=== PATIENT | male | born 1990 | race Caucasian/White ===

== ENCOUNTER 2016-08-26 18:00 | Emergency (ER) | payer OTHER ==
[2016-08-26 18:41] VITALS: BP 175/118
--- NOTE | 2016-08-26 21:14 | RAD ---
INDICATION: Right testicular cancer with orchiectomy. Scrotal pain COMPARISON: April 22, 2015 TECHNIQUE: Duplex interrogation of the scrotum was performed. FINDINGS: Testicles: There is a right testicular prosthesis. The left testicle is normal in size and echogenicity measuring 4.9 x 3.1 x 3.5 cm. There is flow on Doppler interrogation. Left epididymis: The right epididymis appears normal. The epididymal head measures 1.6 x 1.1 cm. Hydroceles: None. Varicoceles: None. Other: None. IMPRESSION: RIGHT ORCHIECTOMY WITH PROSTHESIS. NORMAL LEFT TESTIS
--- NOTE | 2016-08-26 23:25 | ED ---
Jaya Abbott Alfonso, scribed for Candido Cobb MD on 08/26/16 at 2026 . GI/ HPI - HPI Summary HPI Summary: This is a 26 year old male presenting to [facility] c/o left sided testicular pain since two days ago. He also reports tingling at the tip of his penis. The pain is rated 4/10 in severity. Symptoms aggravated by movement and alleviated by nothing. Denies penile discharge. Patient reports he is not sexually active. PMHx of testicular cancer. PSHx of testicle removal in 2010. - History of Current Complaint Chief Complaint: EDUrogenitalProblems Time Seen by Provider: 08/26/16 19:35 Stated Complaint: GROIN PAIN Hx Obtained From: Patient Onset/Duration: Started Days Ago - 2 days, Still Present Timing: Constant Severity: Moderate Current Severity: Moderate Pain Intensity: 4 Location of Pain: Groin - left sided testicular pain and tingling at the tip of his penis Associated Signs and Symptoms: Positive: Other: - Negaitve sexually active; positive left sided testicular pain and tingling at the tip of his penis. Negative: Discharge, New Sexual Partner Aggravating Factor(s): Movement Alleviating Factor(s): Nothing - Allergy/Home Medications Allergies/Adverse Reactions: Allergies Allergy/AdvReac Type Severity Reaction Status Date / Time No Known Allergies Allergy Verified 08/01/15 10:15 PMH/Surg Hx/FS Hx/Imm Hx Sensory History: Denies: Hx Deafness Opthamlomology History: Denies: Hx Legally Blind - Cancer History Cancer Type, Location and Year: Testicular CA stage 1--had surgery and chemo - Surgical History Surgery Procedure, Year, and Place: testicle removal 2010, 2014 R testicle prosthetis implanted, mediport placed & removed. tonsillectomy Infectious Disease History: No Infectious Disease History: Denies: Traveled Outside the [place] in Last 30 Days - Family History Known Family History: Positive: Other - Cancer - Social History Alcohol Use: None Substance Use Type: Reports: None Smoking Status (MU): Former Smoker Type: Cigarettes Amount Used/How Often: 1-2 cigarettes daily Length of Time of Smoking/Using Tobacco: on & off for a few years Review of Systems Negative: Fever Positive: pain, other - Tingling at the tip of his penis. Negative: discharge All Other Systems Reviewed And Are Negative: Yes Physical Exam Triage Information Reviewed: Yes Vital Signs On Initial Exam: Initial Vitals Temp Pulse Resp BP Pulse Ox 98.8 F 89 16 175/118 99 08/26/16 18:37 08/26/16 18:37 08/26/16 18:37 08/26/16 18:37 08/26/16 18:37 Vital Signs Reviewed: Yes Appearance: Positive: Well-Appearing, No Pain Distress, Obese Skin: Positive: Warm, Skin Color Reflects Adequate Perfusion, Dry Head/Face: Positive: Normal Head/Face Inspection Eyes: Positive: Normal ENT: Positive: Normal ENT inspection Neck: Positive: Supple, Nontender Respiratory/Lung Sounds: Positive: Clear to Auscultation, Breath Sounds Present Cardiovascular: Positive: RRR Abdomen Description: Positive: Nontender, Soft Bowel Sounds: Positive: Present Male Genital Exam: Positive: other - Normal left testical Musculoskeletal: Positive: Normal Neurological: Positive: Normal, Sensory/Motor Intact, Alert, Oriented to Person Place, Time, CN Intact II-III Psychiatric: Positive: Affect/Mood Appropriate - Dennis Coma Scale Coma Scale Total: 15 Diagnostics - Vital Signs Vital Signs Temp Pulse Resp BP Pulse Ox 08/26/16 19:12 98.8 F 76 16 175/118 98 08/26/16 18:37 98.8 F 89 16 175/118 99 - Laboratory Lab Statement: Any lab studies that have been ordered have been reviewed, and results considered in the medical decision making process. - Additional Comments Diagnostic Additional Comments: US Testicular : RIGHT ORCHIECTOMY WITH PROSTHESIS. NORMAL LEFT TESTIS Re-Evaluation - Re-Evaluation First Eval Re-Evaluation Time: 21:37 Comment: Discussed results and follow up with urologist with patient. GIGU Course/Dx - Course Course Of Treatment: Mr. Aggarwal has pain in his left testicle minorly for a few days and had an unremarkable exam and W/U. I referred him to Dr. Feliz. - Diagnoses Provider Diagnoses: Left testicular pain Discharge - Discharge Plan Condition: Stable Disposition: HOME Patient Education Materials: Testicle Pain (ED) Referrals: Sonia Mckeon MD [Medical Doctor] - 3 Days Additional Instructions: Follow up with urologist. The documentation as recorded by the Jaya horner Alfonso accurately reflects the service I personally performed and the decisions made by , Candido Cobb MD.
== END 2016-08-26 21:47 | disposition home or self-care (01) ==
LOC: ED 18:24
DX: N50.812 Left testicular pain (principal); N48.89 Other specified disorders of penis; Z87.891 Personal history of nicotine dependence
CPT/HCPCS: 76870; 99282

== ENCOUNTER 2016-12-25 18:51 | Emergency (ER) | payer OTHER ==
[2016-12-25 19:08] VITALS: BP 142/90
--- NOTE | 2016-12-25 19:13 | UC ---
Complaint Male HPI - HPI Summary HPI Summary: 26 year old male with a history of testicular cancer presents with right testicular mass. - History of Current Complaint Chief Complaint: UCGU Stated Complaint: PERSONAL Time Seen by Provider: 12/25/16 19:12 Hx Obtained From: Patient Onset/Duration: Lasting Days Timing: Constant Severity Initially: Moderate Severity Currently: Moderate Pain Scale Used: 0-10 Numeric - 7 - Allergies/Home Medications Allergies/Adverse Reactions: Allergies Allergy/AdvReac Type Severity Reaction Status Date / Time No Known Allergies Allergy Verified 12/25/16 19:08 Home Medications: Home Medications NK [No Home Medications Reported] 12/25/16 [History Confirmed 12/25/16] PMH/Surg Hx/FS Hx/Imm Hx Previously Healthy: Yes - Surgical History Surgical History: Yes Surgery Procedure, Year, and Place: testicle removal 2010, 2014 R testicle prosthetis implanted, mediport placed & removed. tonsillectomy - Family History Known Family History: Positive: None, Unknown, Other - Cancer - Social History Alcohol Use: None Substance Use Type: None Smoking Status (MU): Former Smoker Type: Cigarettes Amount Used/How Often: 1-2 cigarettes daily Length of Time of Smoking/Using Tobacco: on & off for a few years Household Exposure Type: Cigarettes - Immunization History Most Recent Influenza Vaccination: no Review of Systems Constitutional: Negative Skin: Negative Eyes: Negative ENT: Negative Respiratory: Negative Cardiovascular: Negative Gastrointestinal: Negative Genitourinary: Other - right testicular mass Motor: Negative Neurovascular: Negative Musculoskeletal: Negative Neurological: Negative Psychological: Negative All Other Systems Reviewed And Are Negative: Yes Physical Exam Triage Information Reviewed: Yes Vital Signs: Initial Vital Signs Temp 38.1 C 12/25/16 19:03 Pulse 99 12/25/16 19:03 Resp 16 12/25/16 19:03 BP 142/90 12/25/16 19:03 Pulse Ox 100 12/25/16 19:03 Vital Signs Reviewed: Yes Eye Exam: Normal ENT Exam: Normal Dental Exam: Normal Neck exam: Normal Neck: Positive: 1 Respiratory Exam: Normal Cardiovascular Exam: Normal Abdomen Description: Positive: Other: - right testicular mass Musculoskeletal Exam: Normal Neurological Exam: Normal Psychological Exam: Normal Skin Exam: Normal Complaint Male Course/Dx - Differential Dx/Diagnosis Provider Diagnoses: right testicular mass Discharge - Discharge Plan Condition: Stable Disposition: OTHER Discharge Disposition Comment: patient suggested to go to the er. Patient Education Materials: Testicle Pain (ED), Hematoma (ED) Referrals: VARGAS Healy [Primary Care Provider] - Additional Instructions: patient suggested to go to er for testicular mass/hematoma
== END 2016-12-25 19:27 ==
LOC: UCCORT 18:51
DX: R22.9 Localized swelling, mass and lump, unspecified (principal); Z85.47 Personal history of malignant neoplasm of testis; Z87.891 Personal history of nicotine dependence
CPT/HCPCS: 99212; G0463

== ENCOUNTER 2017-10-16 16:32 | Emergency (ER) | payer OTHER ==
[2017-10-16 16:45] VITALS: BP 147/97
--- NOTE | 2017-10-16 17:17 | UC ---
Complaint Male HPI - HPI Summary HPI Summary: pt had R testicle CA about 10-11 years ago. about 3-4 years ago he got a R testicular implant. about [address] Mendoza lowered it. The past 2 weeks he has been having episodic sharp pains with certain movements " like a stitch is poking me". he denies any injury, fever, swelling, rash or urinary complaints. he also denies any abdominal pain. n/v/d. - History of Current Complaint Chief Complaint: UCGU Stated Complaint: PERSONAL Time Seen by Provider: 10/16/17 16:44 Hx Obtained From: Patient Pain Intensity: 4 Alleviating Factor(s): Nothing Associated Signs And Symptoms: Negative: Back Pain, Fever, Hematuria, Dysuria, Penile Swelling, Penile Discharge - Allergies/Home Medications Allergies/Adverse Reactions: Allergies Allergy/AdvReac Type Severity Reaction Status Date / Time No Known Allergies Allergy Verified 01/11/17 11:53 PMH/Surg Hx/FS Hx/Imm Hx - Additional Past Medical History Additional PMH: R testicle CA - Surgical History Surgical History: Yes Surgery Procedure, Year, and Place: testicle removal 2010, 2014 R testicle prosthetis implanted, mediport placed & removed. tonsillectomy - Family History Known Family History: Positive: None, Unknown, Other - Cancer - Social History Occupation: Employed Full-time Alcohol Use: None Substance Use Type: None Smoking Status (MU): Former Smoker Type: Cigarettes Amount Used/How Often: 1-2 cigarettes daily Length of Time of Smoking/Using Tobacco: on & off for a few years Household Exposure Type: Cigarettes - Immunization History Most Recent Influenza Vaccination: no Vaccination Up to Date: Yes Review of Systems Constitutional: Negative Skin: Negative Eyes: Negative ENT: Negative Respiratory: Negative Cardiovascular: Negative Gastrointestinal: Negative Genitourinary: Other - R testicle implant pains Motor: Negative Neurovascular: Negative Musculoskeletal: Negative Neurological: Negative Psychological: Negative Is Patient Immunocompromised?: No All Other Systems Reviewed And Are Negative: Yes Physical Exam Triage Information Reviewed: Yes Appearance: Well-Appearing Vital Signs: Initial Vital Signs Temp 99.0 F 10/16/17 16:39 Pulse 81 10/16/17 16:39 Resp 17 10/16/17 16:39 BP 147/97 10/16/17 16:39 Pulse Ox 100 10/16/17 16:39 Vital Signs Reviewed: Yes Eyes: Positive: Conjunctiva Clear ENT: Positive: Normal ENT inspection Neck: Positive: Supple, Nontender, No Lymphadenopathy Respiratory: Positive: Lungs clear, Normal breath sounds Cardiovascular: Positive: RRR, No Murmur Abdomen Description: Positive: Nontender, No Organomegaly, Soft. Negative: Distended, Guarding Bowel Sounds: Positive: Present Male Genital Exam: Positive: Other - No inguinal adenopathy or hernias. Penis without swelling, lesions or discharge. No scrotal erythema, swelling, warmth or tenderness. L testicle down with no swelling, tendernes or masses. R implant palpable and no fluctuance. Musculoskeletal: Positive: ROM Intact Neurological: Positive: Alert Psychological: Positive: Age Appropriate Behavior Skin Exam: Normal Complaint Male Course/Dx - Course Course Of Treatment: I spoke to Dr Mendoza, pt's urologist and advised of implant pain. He advised if pt has no fever and no concern for infection or abscess that I can tx with an NSAID and pt to f/u in his office. No concern for hernia. No fever, red, swelling, warmth or fluctuance. No concern for infection thus pt to f/u in office. pt advised to go directly to the Er for changes or worsening. - Differential Dx/Diagnosis Provider Diagnoses: R tesicular implant discomfort Discharge - Sign-Out/Discharge Documenting (check all that apply): Patient Departure - Discharge Plan Condition: Stable Disposition: HOME Prescriptions: Naproxen [Naprosyn 500 mg tab] 500 mg PO BID 5 Days #10 tablet Patient Education Materials: Testicle Prosthesis (DC) [facility] - If Needed Additional Instructions: FOLLOW UP DR POMPA WEDNESDAY(2 DAYS). [address], [address] [place] [address] IF YOU DEVELOP WORSENING, A FEVER, RED, WARMTH OR SWELLING GO DIRECTLY TO THE ER - Billing Disposition and Condition Condition: STABLE Disposition: Home
== END 2017-10-16 17:22 | disposition home or self-care (01) ==
LOC: UCCORT 16:32
DX: T83.84XA Pain due to genitourinary prosthetic devices, implants and grafts, initial encounter (principal); Z85.47 Personal history of malignant neoplasm of testis; Z87.891 Personal history of nicotine dependence
CPT/HCPCS: 99212; G0463

== ENCOUNTER 2018-05-16 10:26 | Emergency (ER) | payer OTHER ==
--- OUTSIDE RECORDS SUMMARY | 2018-05-16 11:16 | XMS REPORT | Continuity of Care Document ---
:1990 External Reference #:[id number] Author Name Dona Mendoza M.D. Address [address] [place] [address] Care Team Providers Name Role Phone Lola Anderson PA Care Team Information Insurance Broker Unavailable Lola Anderson PA Primary Care Physician Unavailable Payers Date Identification Numbers Payment Provider Subscriber Effective: 2009 Policy Number: [id number] [employer] Darin Aggarwal PayID: [id number] [address] [place] [address] Advance Directives Description No Information Available Problems Date Description Provider Status Onset: 04/26/2015 Malignant tumor of testis Bonita Mahoney DO Active Onset: 04/26/2015 Leukocytosis Bonita Mahoney DO Active Onset: 04/26/2015 Hemorrhage of rectum and anus Bonita Mahoney DO Active Onset: 04/12/2018 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 Active Onset: 10/30/2016 Pain in scrotum Dona Mendoza M.D. Active Onset: 08/19/2016 Sprain of knee Active Onset: 04/29/2014 Depressive disorder Active Onset: 05/15/2014 Postoperative pain Active Onset: 05/31/2014 Strain of tendon of medial thigh Active muscle Onset: 06/16/2014 Bronchitis Active Onset: 10/27/2014 Upper gastrointestinal bleeding Active Onset: 10/27/2014 Chest pain Active Onset: 10/27/2014 Pain in testicle Active Onset: 01/10/2015 Stress and adjustment reaction Active Onset: 02/22/2015 Pain in testicle Active Onset: 04/04/2015 Viral disease Active Onset: 05/09/2015 Anxiety Active Onset: 06/06/2015 Adjustment disorder Active Onset: 06/29/2015 Inguinal pain Active Onset: 08/03/2015 Inguinal pain Active Onset: 12/03/2015 Edema Active Onset: 12/03/2015 Lymphadenopathy Active Onset: 02/01/2016 Abdominal pain Active Onset: 02/01/2016 Hematochezia Active Onset: 02/29/2016 Fever Active Onset: 08/19/2016 Sprain of ankle Active Family History Date Family Member(s) Observation Comments Father Stroke Father Diabetes Mother due to Motor Vehicle Accident () Mother due to Diabetes () Grandfather due to Prostate Cancer () Social History Type Date Description Comments Sex Unknown Lives With Father Diet Patient follows no dietary restrictions Occupation Currently Working [employer] Tobacco Use Start: Unknown Never Smoked Cigarettes ETOH Use Denies alcohol use Recreational Drug Use Denies Drug Use Tobacco Use Start: Unknown Patient is a former 2 MONTHS A GO End: Unknown smoker Smoking Status Reviewed: 04/11/18 Patient is a former 2 MONTHS A GO smoker Allergies, Adverse Reactions, Alerts Description No Known Drug Allergies Medications Medication Date Status Form Strength Qnty SIG Indications Ordering Provider Hydrocortisone 04/12/ Active Cream 1% 28.350 applied to [facility], 2018 gm the raman Carcamo M.D. site twice a day No Active 04/12/ Hx Unknown Medications 2018 - 2018 No Active 02/19/ Hx Unknown Medications 2016 - 2017 Amoxicillin/Clav 12/09/ Hx Tablets 875-125mg 20tabs Every 12 Unknown ulanate 2017 - Hours Potassium 2016 No Active 10/31/ Hx Christophe, Ho Medications 2009 - MD Kp 2016 Sulfamethoxazole / Hx Tablets 800-160mg Wil, /Trimethoprim DS 0000 - Yaz, 04/12/ MD Kelvin 2018 Immunizations Description No Information Available Vital Signs Date Vital Result Comment 04/12/2018 10:24am BP Systolic 133 mmHg BP Diastolic 88 mmHg Body Temperature 99.4 F Heart Rate 73 /min Respiratory Rate 16 /min Weight 281.12 lb O2 % BldC Oximetry 97 % Pain Level 2 testicle pain 02/02/2018 4:02pm BP Systolic 127 mmHg BP Diastolic 91 mmHg Body Temperature 98.7 F Heart Rate 81 /min Respiratory Rate 18 /min Weight 278.12 lb O2 % BldC Oximetry 98 % Pain Level 0 02/01/2018 1:44pm BP Systolic 129 mmHg BP Diastolic 91 mmHg Body Temperature 99.8 F Heart Rate 74 /min Respiratory Rate 16 /min Height 68 inches 5'8" Weight 277.25 lb BMI (Body Mass Index) 42.2 kg/m2 BSA (Body Surface Area) 2.35 m2 [place] body weight in kilograms 70 kg O2 % BldC Oximetry 98 % Pain Level 0 01/25/2018 9:02am BP Systolic 153 mmHg BP Diastolic 88 mmHg Body Temperature 98.7 F Heart Rate 68 /min Respiratory Rate 16 /min Height 68 inches 5'8" Weight 277.38 lb BMI (Body Mass Index) 42.2 kg/m2 BSA (Body Surface Area) 2.35 m2 [place] body weight in kilograms 70 kg O2 % BldC Oximetry 98 % Pain Level 5 Where implant was taken out 01/06/2018 2:20pm BP Systolic 130 mmHg BP Diastolic 87 mmHg Body Temperature 99.1 F Heart Rate 67 /min Respiratory Rate 16 /min O2 % BldC Oximetry 96 % Pain Level 2 01/03/2018 11:16am BP Systolic 161 mmHg BP Diastolic 90 mmHg Body Temperature 98.2 F Heart Rate 65 /min Respiratory Rate 16 /min Weight 281.12 lb O2 % BldC Oximetry 96 % Pain Level 0 09/06/2017 1:00pm BP Systolic 143 mmHg Retaken at 1326 - 124/77 BP Diastolic 100 mmHg Retaken at 1326 - 124/77 Body Temperature 98.1 F Heart Rate 89 /min Respiratory Rate 18 /min Weight 282.50 lb O2 % BldC Oximetry 97 % Pain Level 2 07/30/2017 7:45am BP Systolic 130 mmHg Right BP Diastolic 70 mmHg Right Body Temperature 97.4 F Heart Rate 70 /min Respiratory Rate 20 /min Weight 282.12 lb O2 % BldC Oximetry 97 % Pain Level 4 RT Groin 05/10/2017 3:26pm BP Systolic 152 mmHg BP Diastolic 116 mmHg Body Temperature 99.0 F Heart Rate 76 /min Respiratory Rate 18 /min Height 68 inches 5'8" Weight 284.00 lb BMI (Body Mass Index) 43.2 kg/m2 BSA (Body Surface Area) 2.37 m2 [place] body weight in kilograms 70 kg O2 % BldC Oximetry 96 % Pain Level 2 area of hematoma 02/19/2017 2:28pm BP Systolic 136 mmHg BP Diastolic 88 mmHg Body Temperature 97.6 F Heart Rate 74 /min Respiratory Rate 16 /min Height 68 inches 5'8" Weight 280.00 lb BMI (Body Mass Index) 42.6 kg/m2 BSA (Body Surface Area) 2.36 m2 [place] body weight in kilograms 70 kg O2 % BldC Oximetry 97 % Pain Level 3 Bottom part of testicle 12/10/2016 10:24am BP Systolic 133 mmHg BP Diastolic 83 mmHg Body Temperature 97.9 F 36.6c Heart Rate 59 /min Height 68 inches 5'8" Weight 274.00 lb BMI (Body Mass Index) 41.7 kg/m2 BSA (Body Surface Area) 2.34 m2 [place] body weight in kilograms 70 kg O2 % BldC Oximetry 97 % 10/30/2016 1:56pm BP Systolic 125 mmHg BP Diastolic 86 mmHg Body Temperature 98.9 F 37.2c Heart Rate 85 /min Respiratory Rate 20 /min Height 68 inches 5'8" Weight 270.25 lb BMI (Body Mass Index) 41.1 kg/m2 BSA (Body Surface Area) 2.32 m2 [place] body weight in kilograms 70 kg O2 % BldC Oximetry 97 % 08/25/2016 10:22am BP Systolic 118 mmHg BP Diastolic 72 mmHg Body Temperature 98.1 F Heart Rate 65 /min Weight 268.00 lb O2 % BldC Oximetry 97 % 08/18/2016 9:30am BP Systolic 117 mmHg BP Diastolic 82 mmHg Body Temperature 98.0 F Heart Rate 65 /min Weight 267.12 lb O2 % BldC Oximetry 97 % 04/22/2016 9:23am BP Systolic 117 mmHg BP Diastolic 80 mmHg Body Temperature 98.7 F Heart Rate 67 /min Respiratory Rate 18 /min Weight 249.56 lb O2 % BldC Oximetry 97 % 04/20/2016 8:15am BP Systolic 126 mmHg BP Diastolic 80 mmHg Body Temperature 98.0 F Heart Rate 74 /min Respiratory Rate 16 /min Weight 249.25 lb O2 % BldC Oximetry 97 % 02/05/2016 9:26am BP Systolic 126 mmHg BP Diastolic 82 mmHg Body Temperature 98.3 F Heart Rate 74 /min Respiratory Rate 20 /min Weight 232.00 lb O2 Saturation Level with Exercise 96 % 08/30/2015 10:35am BP Systolic 138 mmHg BP Diastolic 92 mmHg Body Temperature 98.0 F Heart Rate 62 /min Respiratory Rate 18 /min Weight 246.38 lb O2 % BldC Oximetry 98 % 06/24/2015 4:20pm BP Systolic 140 mmHg BP Diastolic 91 mmHg Body Temperature 98.4 F Heart Rate 100 /min Respiratory Rate 16 /min Height 67 inches 5'7" Weight 247.38 lb BMI (Body Mass Index) 38.7 kg/m2 BSA (Body Surface Area) 2.21 m2 O2 % BldC Oximetry 100 % 05/13/2015 1:50pm BP Systolic 124 mmHg BP Diastolic 73 mmHg Body Temperature 97.5 F Heart Rate 72 /min Respiratory Rate 18 /min Weight 244.00 lb O2 % BldC Oximetry 98 % 04/26/2015 1:01pm BP Systolic 150 mmHg BP Diastolic 93 mmHg Body Temperature 98.3 F Heart Rate 72 /min Respiratory Rate 18 /min Height 67 inches 5'7" Weight 244.00 lb BMI (Body Mass Index) 38.2 kg/m2 BSA (Body Surface Area) 2.20 m2 O2 % BldC Oximetry 99 % 04/16/2010 9:26am Height 68 inches 5'8" Weight 210.00 lb BMI (Body Mass Index) 31.9 kg/m2 02/12/2010 8:14am Heart Rate 55 /min Respiratory Rate 18 /min Height 67 inches 5'7" Weight 210.00 lb BMI (Body Mass Index) 32.9 kg/m2 11/07/2009 9:11am Heart Rate 57 /min Respiratory Rate 20 /min Height 67 inches 5'7" Weight 214.00 lb BMI (Body Mass Index) 33.5 kg/m2 Results Test Date Facility Test Result H/L Range Note Laboratory test 03/28/2018 [facility] Afp Tumor 2.6 ng/mL 0.0-8.3 1, [address] Marker,[place] [address] [phone] LDH 170 U/L N 87-241 Testosterone,Serum 288 ng/dL 264-916 3 HCG,Beta Subunit,QN,(Serial) <1 mIU/mL 0-3 4 CBS W/Automated 03/28/2018 [facility] White Blood 10.7 K/uL High 3.4-10.[address] [place] [place] [address] [phone] Red Blood Count 4.92 M/uL N 4.20-5.80 Hemoglobin 14.9 gm/dL N 12.8-17.0 Hematocrit 44.3 % N 38.0-48.0 Mean Cell Volume 90.0 fl N 80.0-96.0 Mean Corpuscular HGB 30.3 pg N 27.0-33.0 Mean Corpuscular HGB Conc 33.6 g/dL N 31.7-36.0 Platelet Count 393 K/uL High 155-360 Red Cell Distri Width SD 42.2 fl N 36-51 Red Cell Distri Width %CV 13.2 % N 11.6-15.8 Mean Platelet Volume 10.5 fL N 6.6-10.6 Neut% 59.0 % N 33.0-73.0 Lymph % 33.0 % N 20.0-42.0 [place] % 6.4 % N 0.0-10.0 Eo% 1.3 % N 0.0-6.6 Bas% 0.3 % N 0.0-1.1 Neut# 6.29 K/uL N 1.8-7.0 Lymph # 3.51 K/uL N 1.0-4.0 [place] # 0.68 K/uL N 0.0-0.8 Eos # 0.14 K/uL N 0.0-0.5 Baso # 0.03 K/uL N 0.0-0.1 Comprehensive Metabolic 03/28/2018 [facility] Glucose 127 mg/dL High 74-[address] [place], [place] [id number] [phone] BUN 17 mg/dL N 7-18 Creatinine 1.0 mg/dL N 0.6-1.3 Glom Filtration Rate, Estimate >60 mL/min >60 If >60 mL/min >60 5 BUN/Creat 17.0 ratio Sodium 140 mmol/L N 136-145 Potassium 3.9 mmol/L N 3.5-5.1 Chloride 106 mmol/L N 98-107 Carbon Dioxide 26 mmol/L N 21-32 Anion Gap 8 mEq/L N 8-16 Calcium 8.6 mg/dL N 8.5-10.1 Total Protein 8.6 g/dL High 6.4-8.2 Albumin 3.8 g/dL N 3.4-5.0 Globulin 4.8 g/dL High 1.9-4.3 Alb/Glob 0.8 ratio Bilirubin,Total 0.4 mg/dL N 0.2-1.0 Sgot/Ast 23 U/L N 15-37 SGPT/Alt 69 U/L N 12-78 Alkaline Phosphatase 80 U/L N 45-117 Laboratory test 01/25/2018 [facility] Afp Tumor 2.5 ng/mL 0.0-8.3 [address] Marker,[place] [address] [phone] LDH 175 U/L N 87-241 Testosterone,Serum 292 ng/dL 264-916 7 HCG,Beta Subunit,QN,(Serial) <1 mIU/mL 0-3 8 CBS W/Automated Diff 01/25/2018 [facility] White Blood 8.8 K/uL N 3.4-10.[address] Count [place], [place] [id number] [phone] Red Blood Count 4.95 M/uL N 4.20-5.80 Hemoglobin 14.9 gm/dL N 12.8-17.0 Hematocrit 44.6 % N 38.0-48.0 Mean Cell Volume 90.1 fl N 80.0-96.0 Mean Corpuscular HGB 30.1 pg N 27.0-33.0 Mean Corpuscular HGB Conc 33.4 g/dL N 31.7-36.0 Platelet Count 361 K/uL High 155-360 Red Cell Distri Width SD 42.1 fl N 36-51 Red Cell Distri Width %CV 12.9 % N 11.6-15.8 Mean Platelet Volume 10.6 fL N 6.6-10.6 Neut% 63.9 % N 33.0-73.0 Lymph % 28.9 % N 20.0-42.0 [place] % 6.5 % N 0.0-10.0 Eo% 0.6 % N 0.0-6.6 Bas% 0.1 % N 0.0-1.1 Neut# 5.64 K/uL N 1.8-7.0 Lymph # 2.55 K/uL N 1.0-4.0 [place] # 0.57 K/uL N 0.0-0.8 Eos # 0.05 K/uL N 0.0-0.5 Baso # 0.01 K/uL N 0.0-0.1 Comprehensive Metabolic 01/25/2018 [facility] Glucose 109 mg/dL High 74-[address] [place] [address] [phone] BUN 18 mg/dL N 7-18 Creatinine 1.1 mg/dL N 0.6-1.3 Glom Filtration Rate, Estimate >60 mL/min >60 If >60 mL/min >60 9 BUN/Creat 16.3 ratio Sodium 140 mmol/L N 136-145 Potassium 4.2 mmol/L N 3.5-5.1 Chloride 106 mmol/L N 98-107 Carbon Dioxide 25 mmol/L N 21-32 Anion Gap 9 mEq/L N 8-16 Calcium 9.0 mg/dL N 8.5-10.1 Total Protein 8.9 g/dL High 6.4-8.2 Albumin 4.2 g/dL N 3.4-5.0 Globulin 4.7 g/dL High 1.9-4.3 Alb/Glob 0.9 ratio Bilirubin,Total 0.4 mg/dL N 0.2-1.0 Sgot/Ast 29 U/L N 15-37 SGPT/Alt 79 U/L High 12-78 Alkaline Phosphatase 81 U/L N 45-117 CBS W/Automated Diff 12/16/2017 [facility] White Blood 9.7 K/uL N 3.4-10.[address] [place] [place] [address] [phone] Red Blood Count 5.00 M/uL N 4.20-5.80 Hemoglobin 15.3 gm/dL N 12.8-17.0 Hematocrit 44.1 % N 38.0-48.0 Mean Cell Volume 88.2 fl N 80.0-96.0 Mean Corpuscular HGB 30.6 pg N 27.0-33.0 Mean Corpuscular HGB Conc 34.7 g/dL N 31.7-36.0 Platelet Count 398 K/uL High 155-360 Red Cell Distri Width SD 41.6 fl N 36-51 Red Cell Distri Width %CV 13.2 % N 11.6-15.8 Mean Platelet Volume 10.6 fL N 6.6-10.6 Neut% 54.7 % N 33.0-73.0 Lymph % 36.3 % N 20.0-42.0 [place] % 7.6 % N 0.0-10.0 Eo% 1.2 % N 0.0-6.6 Bas% 0.2 % N 0.0-1.1 Neut# 5.30 K/uL N 1.8-7.0 Lymph # 3.52 K/uL N 1.0-4.0 [place] # 0.74 K/uL N 0.0-0.8 Eos # 0.12 K/uL N 0.0-0.5 Baso # 0.02 K/uL N 0.0-0.1 Comprehensive Metabolic 12/16/2017 [facility] Glucose 115 mg/dL High 74-[address] [place] [address] [phone] BUN 14 mg/dL N 7-18 Creatinine 1.0 mg/dL N 0.6-1.3 Glom Filtration Rate, Estimate >60 mL/min >60 If >60 mL/min >60 10 BUN/Creat 14.0 ratio Sodium 140 mmol/L N 136-145 Potassium 4.2 mmol/L N 3.5-5.1 Chloride 107 mmol/L N 98-107 Carbon Dioxide 24 mmol/L N 21-32 Anion Gap 9 mEq/L N 8-16 Calcium 8.8 mg/dL N 8.5-10.1 Total Protein 8.6 g/dL High 6.4-8.2 Albumin 4.0 g/dL N 3.4-5.0 Globulin 4.6 g/dL High 1.9-4.3 Alb/Glob 0.9 ratio Bilirubin,Total 0.5 mg/dL N 0.2-1.0 Sgot/Ast 39 U/L High 15-37 SGPT/Alt 91 U/L High 12-78 Alkaline Phosphatase 79 U/L N 45-117 Laboratory test 12/16/2017 [facility] Afp Tumor 1.6 ng/mL 0.0-8.3 [address] Marker,[place] [address] [phone] LDH 219 U/L N 87-241 Testosterone,Serum 331 ng/dL 264-916 12 HCG,Beta Subunit,QN,(Serial) <1 mIU/mL 0-3 13 Xray 08/30/2017 [facility] - Radiology CT, Chest, With Contrast <pending> [address] [address] [phone] CT, Abdomen & Pelvis W Contrast <pending> CBS W/Automated 07/21/2017 [facility] White Blood 11.8 K/uL High 3.4-10.[address] [place] [place] [address] [phone] Red Blood Count 4.93 M/uL N 4.20-5.80 Hemoglobin 15.1 gm/dL N 12.8-17.0 Hematocrit 45.1 % N 38.0-48.0 Mean Cell Volume 91.5 fl N 80.0-96.0 Mean Corpuscular HGB 30.6 pg N 27.0-33.0 Mean Corpuscular HGB Conc 33.5 g/dL N 31.7-36.0 Platelet Count 372 K/uL High 155-360 Red Cell Distri Width SD 43.6 fl N 36-51 Red Cell Distri Width %CV 13.3 % N 11.6-15.8 Mean Platelet Volume 11.0 fL High 6.6-10.6 Neut% 58.1 % N 33.0-73.0 Lymph % 33.7 % N 20.0-42.0 [place] % 7.1 % N 0.0-10.0 Eo% 0.9 % N 0.0-6.6 Bas% 0.2 % N 0.0-1.1 Neut# 6.88 K/uL N 1.8-7.0 Lymph # 3.99 K/uL N 1.0-4.0 [place] # 0.84 K/uL High 0.0-0.8 Eos # 0.11 K/uL N 0.0-0.5 Baso # 0.02 K/uL N 0.0-0.1 Laboratory test 07/21/2017 [facility] Afp Tumor 1.4 ng/mL 0.0-8.3 [address] Marker,[place] [address] [phone] LDH <pending> Testosterone,Serum 246 ng/dL Low 264-916 15 HCG,Beta Subunit,QN,(Serial) <1 mIU/mL 0-3 16 Eosinophil # Bld 12/09/2016 N2N/CCD Import Eosinophil # Bld 0.13 0.0- 0.5 Auto Auto Hct VFr Bld Auto 12/09/2016 N2N/CCD Import Hct VFr Bld Auto 42.0 38.0- 48.0 Lymphocytes 12/09/2016 N2N/CCD Import Lymphocytes 3.53 1.0-4.0 [#/volume] in [#/volume] in Blood by Blood by Automated count Automated count Lymphocytes/100 12/09/2016 N2N/CCD Import Lymphocytes/100 21 20-42 leukocytes in leukocytes in Blood by Manual Blood by Manual coun count Monocytes/100 12/09/2016 N2N/CCD Import Monocytes/100 7 0-10 leukocytes in leukocytes in Blood by Manual Blood by Manual count count Neutrophils # 12/09/2016 N2N/CCD Import Neutrophils # 8.95 High 1.8-7.0 Bld Auto Bld Auto Neuts Band/leuk 12/09/2016 N2N/CCD Import Neuts Band/leuk 1 0-8 NFr Bld Manual NFr Bld Manual Neuts Seg/leuk 12/09/2016 N2N/CCD Import Neuts Seg/leuk 71 33-73 NFr Bld Manual NFr Bld Manual PMV Bld Auto 12/09/2016 N2N/CCD Import PMV Bld Auto 10.4 6.6-10.6 Platelets 12/09/2016 N2N/CCD Import Platelets 393 150-400 [#/volume] in [#/volume] in Blood by Blood by Automated count Automated count RDW RBC Auto 12/09/2016 N2N/CCD Import RDW RBC Auto 41.6 36-51 RDW RBC Auto-Rto 12/09/2016 N2N/CCD Import RDW RBC Auto-Rto 12.9 11.6- 15.8 Total Cells 12/09/2016 N2N/CCD Import Total Cells 100 Counted Bld Counted Bld Unloinc 12/09/2016 N2N/CCD Import [place]loinc Diff Ordered WBC # Bld Auto 12/09/2016 N2N/CCD Import WBC # Bld Auto 13.8 High 3.4- 10.5 Color Ur 12/09/2016 N2N/CCD Import Color Ur Yellow Yellow Ketones Ur 12/09/2016 N2N/CCD Import Ketones Ur Negative Negative Strip.auto-mCnc Strip.auto-mCnc Leukocyte 12/09/2016 N2N/CCD Import Leukocyte Negative Negative esterase Ur Ql esterase Ur Ql Strip.auto Strip.auto Nitrite Ur Ql 12/09/2016 N2N/CCD Import Nitrite Ur Ql Negative Negative Strip.auto Strip.auto Prot Ur 12/09/2016 N2N/CCD Import Prot Ur Negative Negative Strip.auto-mCnc Strip.auto-mCnc Specific gravity 12/09/2016 N2N/CCD Import Specific gravity 1.025 1.010- 1.030 of Urine by of Urine by Automated test Automated test strip strip Urine appearance 12/09/2016 N2N/CCD Import Urine appearance Clear Clear determination determination Urine glucose 12/09/2016 N2N/CCD Import Urine glucose Negative Negative measurement by measurement by automated test automated test strip strip (mass/volume) Urine hemoglobin 12/09/2016 N2N/CCD Import Urine hemoglobin Negative Negative detection by detection by automated test automated test strip strip Urine total 12/09/2016 N2N/CCD Import Urine total Negative Negative bilirubin bilirubin detection by detection by automated test automated test strip Blood platelet 12/09/2016 N2N/CCD Import Blood platelet Normal adequacy adequacy detection by detection by light microsc light microscopy Blood monocytes 12/09/2016 N2N/CCD Import Blood monocytes 1.18 High 0.0- 0.8 automated count automated count (number/volume) (number/volume) Blood hemoglobin 12/09/2016 N2N/CCD Import Blood hemoglobin 14.6 12.8- 17.0 measurement measurement (mass/volume) (mass/volume) Blood 12/09/2016 N2N/CCD Import Blood 4.67 4.20-5.80 erythrocytes erythrocytes automated count automated count (number/volume) (number/volume) Basophils 12/09/2016 N2N/CCD Import Basophils 0.02 0.0-0.1 [#/volume] in [#/volume] in Blood by Blood by Automated count Automated count Urobilinogen Ur 12/09/2016 N2N/CCD Import Urobilinogen Ur 0.2 0.2-1.0 Strip-aCnc Strip-aCnc pH Ur Strip.auto 12/09/2016 N2N/CCD Import pH Ur Strip.auto 6.0 Low 6.5- 7.5 Automated 12/09/2016 N2N/CCD Import Automated 31.3 27.0-33.0 erythrocyte mean erythrocyte mean corpuscular corpuscular hemoglobin hemoglobin (mass per erythrocyte) Automated 12/09/2016 N2N/CCD Import Automated 89.9 80.0-96.0 erythrocyte mean erythrocyte mean corpuscular corpuscular volume volume Automated 12/09/2016 N2N/CCD Import Automated 34.8 31.7-36.0 erythrocyte mean erythrocyte mean corpuscular corpuscular hemoglobin hemoglobin concentration measurement (mass/volume) Aot Request 12/02/2016 [facility] Aot Request Test(s) 17, [address] added [address] [place] [address] [phone] Tests to be added: CBC with differe <SEE NOTE> 19 Ua RFX Micro & Culture 12/02/2016 [facility] Urine Color YELLOW Yellow II [address] [place] [address] [phone] Urine Clarity CLEAR Clear Urine Glucose - Dipstick NEGATIVE mg/dL Negative Urine Bilirubin - Dipstick NEGATIVE Negative Urine Ketone NEGATIVE mg/dL Negative Urine Specific [place] 1.020 N 1.010-1.030 Urine Blood NEGATIVE Negative Urine PH 6.0 Low 6.5-7.5 Urine Protein - Dipstick TRACE mg/dL Negative Urine Urobilinogen - Dipstick 0.2 E.U./dL N 0.2-1.0 Urine Nitrite - Dipstick NEGATIVE Negative Urine Leuk Esterase NEGATIVE Negative Source: URINE, CLEAN CAT <SEE NOTE> 20 Sodium SerPl-sCnc 12/02/2016 N2N/CCD Import Sodium SerPl-sCnc 140 136- 145 Serum or plasma 12/02/2016 N2N/CCD Import Serum or plasma 16 7-18 urea nitrogen urea nitrogen measurement measurement (mass/vo (mass/volume) Serum or plasma 12/02/2016 N2N/CCD Import Serum or plasma 0.4 0.2-1.0 total bilirubin total bilirubin measurement (mass/ measurement (mass/volume) Serum or plasma 12/02/2016 N2N/CCD Import Serum or plasma 8.8 High 6.4- 8.2 protein protein measurement measurement (mass/volume) (mass/volume) Serum or plasma 12/02/2016 N2N/CCD Import Serum or plasma 0.9 0.6-1.3 creatinine creatinine measurement measurement (mass/volum (mass/volume) Serum or plasma 12/02/2016 N2N/CCD Import Serum or plasma 9.4 8.5-10.1 calcium calcium measurement measurement (mass/volume) (mass/volume) Serum or plasma 12/02/2016 N2N/CCD Import Serum or plasma 79 45-117 alkaline alkaline phosphatase phosphatase measurement ( measurement (enzymatic activity/volume) Serum or plasma 12/02/2016 N2N/CCD Import Serum or plasma 4.1 3.4-5.0 albumin albumin measurement measurement (mass/volume) (mass/volume) Potassium 12/02/2016 N2N/CCD Import Potassium 3.8 3.5-5.1 SerPl-sCnc SerPl-sCnc * Miscellaneous 12/02/2016 N2N/CCD Import * Miscellaneous Test(s) studies (set) studies (set) added CBC 12/02/2016 [facility] White Blood Count 14.9 K/uL High 3.4-10.5 [address] [place] [address] [phone] Red Blood Count 4.99 M/uL N 4.20-5.80 Hemoglobin 15.1 gm/dL N 12.8-17.0 Hematocrit 44.3 % N 38.0-48.0 Mean Cell Volume 88.8 fl N 80.0-96.0 Mean Corpuscular HGB 30.3 pg N 27.0-33.0 Mean Corpuscular HGB Conc 34.1 g/dL N 31.7-36.0 Platelet Count 396 K/uL N 150-400 Red Cell Distri Width %CV 12.8 % N 11.6-15.8 Mean Platelet Volume 10.3 fL N 6.6-10.6 Comprehensive Metabolic 12/02/2016 [facility] Glucose 100 mg/dL N 74-106 Panel [address] [place] [address] [phone] BUN 16 mg/dL N 7-18 Creatinine 0.9 mg/dL N 0.6-1.3 Glom Filtration Rate, Estimate >60 mL/min >60 If >60 mL/min >60 21 BUN/Creat 17.7 ratio Sodium 140 mmol/L N 136-145 Potassium 3.8 mmol/L N 3.5-5.1 Chloride 110 mmol/L High 98-107 Carbon Dioxide 24 mmol/L N 21-32 Anion Gap 6 mEq/L Low 8-16 Calcium 9.4 mg/dL N 8.5-10.1 Total Protein 8.8 g/dL High 6.4-8.2 Albumin 4.1 g/dL N 3.4-5.0 Globulin 4.7 g/dL High 1.9-4.3 Alb/Glob 0.9 ratio Bilirubin,Total 0.4 mg/dL N 0.2-1.0 Sgot/Ast 31 U/L N 15-37 SGPT/Alt 86 U/L High 12-78 Alkaline Phosphatase 79 U/L N 45-117 CBS W/Automated 12/02/2016 [facility] White Blood 14.9 K/uL High 3.4-10.[address] [place] [place] [address] [phone] Red Blood Count 4.99 M/uL N 4.20-5.80 Hemoglobin 15.1 gm/dL N 12.8-17.0 Hematocrit 44.3 % N 38.0-48.0 Mean Cell Volume 88.8 fl N 80.0-96.0 Mean Corpuscular HGB 30.3 pg N 27.0-33.0 Mean Corpuscular HGB Conc 34.1 g/dL N 31.7-36.0 Platelet Count 396 K/uL N 150-400 Red Cell Distri Width SD 41.4 fl N 36-51 Red Cell Distri Width %CV 12.8 % N 11.6-15.8 Mean Platelet Volume 10.3 fL N 6.6-10.6 22 Neut# 10.91 K/uL High 1.8-7.0 Lymph # 2.54 K/uL N 1.0-4.0 [place] # 0.87 K/uL High 0.0-0.8 Eos # 0.05 K/uL N 0.0-0.5 Baso # 0.03 K/uL N 0.0-0.1 Slide Review 12/02/2016 [facility] Slide Review DIFF ORDERED [address] [place], [place] [id number] [phone] Differential-WBC 12/02/2016 [facility] Total Cells 100 #CELLS Confirm [address] Counted [place], [place] [id number] [phone] Band% 4 % N 0-8 Neutrophils% 69 % N 33-73 Lymph% 23 % N 20-42 Atypical Lymph% 1 % N 0-7 Monocyte% 1 % N 0-10 Eosinophil% 2 % N 0-5 Platelet Estimate NORMAL Poikilocytosis 0-1+ Anisocytosis 0-1+ Alt SerPl-cCnc 12/02/2016 N2N/CCD Import Alt SerPl-cCnc 86 High 12-78 Albumin/Glob SerPl 12/02/2016 N2N/CCD Import Albumin/Glob SerPl 0.9 Lymphocytes 12/02/2016 N2N/CCD Import Lymphocytes 1 0-7 variant/100 variant/100 leukocytes in blood leukocytes in blood by man by manual count Glucose 12/02/2016 N2N/CCD Import Glucose 100 74-106 [Mass/volume] in [Mass/volume] in Serum or Plasma Serum or Plasma Globulin Ser 12/02/2016 N2N/CCD Import Globulin Ser 4.7 High 1.9-4.3 Calc-mCnc Calc-mCnc Chloride SerPl-sCnc 12/02/2016 N2N/CCD Import Chloride SerPl-sCnc 110 High 98-107 Co2 SerPl-sCnc 12/02/2016 N2N/CCD Import Co2 SerPl-sCnc 24 21-32 Anion Gap SerPl-sCnc 12/02/2016 N2N/CCD Import Anion Gap SerPl-sCnc 6 Low 8-16 Aspartate 12/02/2016 N2N/CCD Import Aspartate 31 15-37 aminotransferase aminotransferase [Enzymatic [Enzymatic activity/vol activity/volume] in Serum or Plasma BUN/Creat SerPl 12/02/2016 N2N/CCD Import BUN/Creat SerPl 17.7 Immunoglobulins 08/18/2016 [facility] Immunoglobulin [phone] 23 A/G/M, QN, Ser [address] G,Quant,Serum mg/dL [place], [place] [id number] [phone] Immunoglobulin A 301 mg/dL 90-386 Immunoglobulin M 76 mg/dL 20-172 Erythrocyte 08/18/2016 N2N/CCD Import Erythrocyte 6 0-15 sedimentation rate sedimentation rate by 15 minute by 15 minute readin reading Serum or plasma 08/18/2016 N2N/CCD Import Serum or plasma 276 Low 348- 1197 testosterone testosterone measurement measurement (mass/vol (mass/volume) Unloinc 08/18/2016 N2N/CCD Import Unloinc See Note 24 Serum or plasma 08/18/2016 N2N/CCD Import Serum or plasma 76 20-172 IgM measurement IgM measurement (mass/volume) (mass/volume) Laboratory test 08/18/2016 [facility] Cortisol,Random 8.6 . [address] g/[place] [address] [phone] Liver Function 08/18/2016 [facility] Total Protein 8.4 g/dL High 6.4-8.[address] [place] [address] [phone] Albumin 4.1 g/dL N 3.4-5.0 Globulin 4.3 g/dL N 1.9-4.3 Alb/Glob 1.0 ratio Bilirubin,Total 0.4 mg/dL N 0.2-1.0 Bilirubin,Direct < 0.1 mg/dL N 0.0-0.2 Bilirubin,Indirect 0.3 mg/dL N 0.0-0.9 Sgot/Ast 41 U/L High 15-37 SGPT/Alt 84 U/L High 12-78 Alkaline Phosphatase 67 U/L N 45-117 Testosterone,Serum 08/18/2016 [facility] Testosterone,Serum 276 Low 348-[address] ng/[place] [address] [phone] Comment (SEE NOTE) 27 Serum or plasma 08/18/2016 N2N/CCD Import Serum or plasma 0.3 0.0-0.9 indirect bilirubin indirect bilirubin measurement (ma measurement (mass/volume) Serum or plasma 08/18/2016 N2N/CCD Import Serum or plasma IgA 301 90- 386 IgA measurement measurement (mass/volume) (mass/volume) Serum or plasma 08/18/2016 N2N/CCD Import Serum or plasma IgG 1300 700- 1600 IgG measurement measurement (mass/volume) (mass/volume) Laboratory test 08/18/2016 [facility] Sedimentation Rate 6 mm/hr N 0-15 [address] [place] [address] [phone] Gamma Glutamyl Transpeptidase 50 U/L N 5-85 Eosinophil/leuk NFr 08/12/2016 N2N/CCD Import Eosinophil/leuk NFr 1.3 0.0-6.6 Bld Auto Bld Auto Lymphocytes/leuk 08/12/2016 N2N/CCD Import Lymphocytes/leuk 33.4 20.0- 42.0 NFr Bld Auto NFr Bld Auto Monocytes/leuk NFr 08/12/2016 N2N/CCD Import Monocytes/leuk NFr 7.1 0.0- 10.0 Bld Auto Bld Auto Laboratory test 08/12/2016 [facility] Afp Tumor 1.3 0.0-8.3 29, [address] Marker,Serum ng/[place] [address] [phone] LDH 215 U/L N 87-241 HCG,Beta Subunit,QN,(Serial) <1 mIU/mL 0-3 31 Neutrophils/leuk NFr 08/12/2016 N2N/CCD Import Neutrophils/leuk 58.0 33.0-73.0 Bld Auto NFr Bld Auto Serum or plasma 08/12/2016 N2N/CCD Import Serum or plasma 1.3 0.0-8.3 [id number]. fsbhl-[id number] tumor marker m .tumor marker measurement (mass/volume) Serum or plasma 08/12/2016 N2N/CCD Import Serum or plasma 215 87-241 lactate lactate dehydrogenase dehydrogenase measurement measurement (enzymatic activity/volume) CBS W/Automated Diff 08/12/2016 [facility] White Blood Count 12.6 High 3.4- 10.[address] K/[place] [address] [phone] Red Blood Count 4.97 M/uL N 4.20-5.80 Hemoglobin 15.3 gm/dL N 12.8-17.0 Hematocrit 44.7 % N 38.0-48.0 Mean Cell Volume 89.9 fl N 80.0-96.0 Mean Corpuscular HGB 30.8 pg N 27.0-33.0 Mean Corpuscular HGB Conc 34.2 g/dL N 31.7-36.0 Platelet Count 374 K/uL N 150-400 Red Cell Distri Width SD 42.4 fl N 36-51 Red Cell Distri Width %CV 13.1 % N 11.6-15.8 Mean Platelet Volume 11.3 fL High 6.6-10.6 Neut% 58.0 % N 33.0-73.0 Lymph % 33.4 % N 20.0-42.0 [place] % 7.1 % N 0.0-10.0 Eo% 1.3 % N 0.0-6.6 Bas% 0.2 % N 0.0-1.1 Neut# 7.29 K/uL High 1.8-7.0 Lymph # 4.20 K/uL High 1.0-4.0 [place] # 0.89 K/uL High 0.0-0.8 Eos # 0.16 K/uL N 0.0-0.5 Baso # 0.03 K/uL N 0.0-0.1 Comprehensive Metabolic 08/12/2016 [facility] Glucose 79 mg/dL N 74-106 Panel [address] [place] [address] [phone] BUN 17 mg/dL N 7-18 Creatinine 0.9 mg/dL N 0.6-1.3 Glom Filtration Rate, Estimate >60 mL/min >60 If >60 mL/min >60 32 BUN/Creat 18.8 ratio Sodium 141 mmol/L N 136-145 Potassium 3.8 mmol/L N 3.5-5.1 Chloride 108 mmol/L High 98-107 Carbon Dioxide 26 mmol/L N 21-32 Anion Gap 7 mEq/L Low 8-16 Calcium 9.0 mg/dL N 8.5-10.1 Total Protein 8.2 g/dL N 6.4-8.2 Albumin 4.0 g/dL N 3.4-5.0 Globulin 4.2 g/dL N 1.9-4.3 Alb/Glob 1.0 ratio Bilirubin,Total 0.3 mg/dL N 0.2-1.0 Sgot/Ast 26 U/L N 15-37 SGPT/Alt 84 U/L High 12-78 Alkaline Phosphatase 67 U/L N 45-117 Slide Review 08/12/2016 [facility] Slide Review . 33 [address] [place] [address] [phone] Basophils/leuk 08/12/2016 N2N/CCD Import Basophils/leuk 0.2 0.0-1.1 NFr Bld Auto NFr Bld Auto CBS W/Automated 04/20/2016 [facility] White Blood 7.9 K/uL N 3.4-10.[address] [place] [place] [address] [phone] Red Blood Count 4.97 M/uL N 4.20-5.80 Hemoglobin 14.8 gm/dL N 12.8-17.0 Hematocrit 44.4 % N 38.0-48.0 Mean Cell Volume 89.3 fl N 80.0-96.0 Mean Corpuscular HGB 29.8 pg N 27.0-33.0 Mean Corpuscular HGB Conc 33.3 g/dL N 31.7-36.0 Platelet Count 345 K/uL N 150-400 Red Cell Distri Width SD 42.9 fl N 36-51 Red Cell Distri Width %CV 13.5 % N 11.6-15.8 Mean Platelet Volume 10.5 fL N 6.6-10.6 Neut% 59.2 % N 33.0-73.0 Lymph % 30.7 % N 20.0-42.0 [place] % 8.7 % N 0.0-10.0 Eo% 1.1 % N 0.0-6.6 Bas% 0.3 % N 0.0-1.1 Neut# 4.70 K/uL N 1.8-7.0 Lymph # 2.44 K/uL N 1.0-4.0 [place] # 0.69 K/uL N 0.0-0.8 Eos # 0.09 K/uL N 0.0-0.5 Baso # 0.02 K/uL N 0.0-0.1 Laboratory test finding 04/20/2016 [facility] LDH 205 U/L N 87-[address] [place] [address] [phone] Afp Tumor Marker,Serum 1.5 ng/mL 0.0-8.3 34 Comprehensive Metabolic 04/20/2016 [facility] Glucose 87 mg/dL N 74-106 Panel [address] [place] [address] [phone] BUN 20 mg/dL High 7-18 Creatinine 1.0 mg/dL N 0.6-1.3 Glom Filtration Rate, Estimate >60 mL/min >60 If >60 mL/min >60 35 BUN/Creat 20.0 ratio Sodium 143 mmol/L N 136-145 Potassium 3.6 mmol/L N 3.5-5.1 Chloride 108 mmol/L High 98-107 Carbon Dioxide 26 mmol/L N 21-32 Anion Gap 9 mEq/L N 8-16 Calcium 8.5 mg/dL N 8.5-10.1 Total Protein 8.0 g/dL N 6.4-8.2 Albumin 3.8 g/dL N 3.4-5.0 Globulin 4.2 g/dL N 1.9-4.3 Alb/Glob 0.9 ratio Bilirubin,Total 0.6 mg/dL N 0.2-1.0 Sgot/Ast 26 U/L N 15-37 SGPT/Alt 62 U/L N 12-78 Alkaline Phosphatase 67 U/L N 45-117 [facility] <pending> finding [address] [facility] [place], [place] [id number] [phone] Comprehensive 02/05/2016 [facility] Glucose 61 mg/dL Low 74-106 Metabolic Panel [address] [place] [address] [phone] BUN 19 mg/dL High 7-18 Creatinine 1.1 mg/dL N 0.6-1.3 Glom Filtration Rate, Estimate >60 mL/min N >60 If >60 mL/min N >60 36 BUN/Creat 17.2 ratio N Sodium 140 mmol/L N 136-145 Potassium 3.9 mmol/L N 3.5-5.1 Chloride 104 mmol/L N 98-107 Carbon Dioxide 27 mmol/L N 21-32 Anion Gap 9 mEq/L N 8-16 Calcium 9.4 mg/dL N 8.5-10.1 Total Protein 9.0 g/dL High 6.4-8.2 Albumin 4.5 g/dL N 3.4-5.0 Globulin 4.5 g/dL High 1.9-4.3 Alb/Glob 1.0 ratio N Bilirubin,Total 0.7 mg/dL N 0.2-1.0 Sgot/Ast 30 U/L N 15-37 SGPT/Alt 58 U/L N 12-78 Alkaline Phosphatase 67 U/L N 45-117 CBS W/Automated Diff 02/05/2016 [facility] White Blood 8.6 K/uL N 3.4-10.[address] [place] [address] [phone] Red Blood Count 5.23 M/uL N 4.20-5.80 Hemoglobin 15.6 gm/dL N 12.8-17.0 Hematocrit 47.4 % N 38.0-48.0 Mean Cell Volume 90.6 fl N 80.0-96.0 Mean Corpuscular HGB 29.8 pg N 27.0-33.0 Mean Corpuscular HGB Conc 32.9 g/dL N 31.7-36.0 Platelet Count 393 K/uL N 150-400 Red Cell Distri Width SD 46.3 fl N 36-51 Red Cell Distri Width %CV 14.2 % N 11.6-15.8 Mean Platelet Volume 10.7 fL High 6.6-10.6 Neut% 68.3 % N 33.0-73.0 Lymph % 23.3 % N 17.0-56.0 [place] % 7.3 % N 0.0-10.0 Eo% 1.0 % N 0.0-5.0 Bas% 0.1 % N 0.1-1.0 Neut# 5.85 K/uL N 1.8-7.0 Lymph # 2.00 K/uL N 1.8-7.0 [place] # 0.63 K/uL N 0.0-0.8 Eos # 0.09 K/uL N 0.0-0.5 Baso # 0.01 K/uL Low 0.1-0.2 Laboratory test finding 02/05/2016 [facility] LDH 213 U/L N 87-241 [address] [place] [address] [phone] BHCG Tumor MRKR <pending> Sedimentation Rate 5 mm/hr N 0-15 Afp Tumor Marker,Serum 1.3 ng/mL N 0.0-8.3 37 HCG,Beta Subunit,QN,(Serial) <1 mIU/mL N 0-3 38 Laboratory test 06/29/2015 N2N/CCD Import Urine Bilirubin Negative Negative finding Urine Blood Negative Negative Urine Clarity Clear Clear Urine Color Yellow Yellow Urine Glucose (Ua) Negative Negative Urine Ketones Negative Negative Urine Leukocyte Esterase Negative Negative Urine Nitrite Negative Negative Urine Protein Negative Negative Urine Specific [place] 1.015 1.010-1.030 Urine Urobilinogen 0.2 0.2-1.0 Urine pH 7.0 6.5-7.5 Laboratory test finding 06/17/2015 [facility] Ferritin 114 ng/mL 26-388 [address] [place] [address] [phone] Sedimentation Rate 7 mm/hr 0-15 Comprehensive Metabolic 06/17/2015 [facility] Glucose 99 mg/dL 74-106 Panel [address] [place] [address] [phone] BUN 18 mg/dL 7-18 Creatinine 1.0 mg/dL 0.6-1.3 Glom Filtration Rate, Estimate >60 mL/min >60 If >60 mL/min >60 39 BUN/Creat 18.0 ratio Sodium 140 mmol/L 136-145 Potassium 4.0 mmol/L 3.5-5.1 Chloride 107 mmol/L 98-107 Carbon Dioxide 25 mmol/L 21-32 Anion Gap 8 mEq/L 8-16 Calcium 8.5 mg/dL 8.5-10.1 Total Protein 8.3 g/dL High 6.4-8.2 Albumin 4.2 g/dL 3.4-5.0 Globulin 4.1 g/dL 1.9-4.3 Alb/Glob 1.0 ratio Bilirubin,Total 0.4 mg/dL 0.2-1.0 Sgot/Ast 32 U/L 15-37 SGPT/Alt 102 U/L High 12-78 Alkaline Phosphatase 72 U/L 45-117 CBC W/Automated 06/17/2015 [facility] White Blood 10.4 K/uL 3.4-10.[address] [place] [place] [address] [phone] Red Blood Count 5.03 M/uL 4.20-5.80 Hemoglobin 15.3 gm/dL 12.8-17.0 Hematocrit 45.0 % 38.0-48.0 Mean Cell Volume 89.5 fl 80.0-96.0 Mean Corpuscular HGB 30.4 pg 27.0-33.0 Mean Corpuscular HGB Conc 34.0 g/dL 31.7-36.0 Platelet Count 388 K/uL 150-400 Red Cell Distri Width SD 42.3 fl 36-51 Red Cell Distri Width %CV 13.2 % 11.6-15.8 Mean Platelet Volume 11.6 fL High 6.6-10.6 Neut% 69.1 % 33.0-73.0 Lymph % 23.6 % 17.0-56.0 [place] % 6.6 % 0.0-10.0 Eo% 0.5 % 0.0-5.0 Bas% 0.2 % 0.1-1.0 Neut# 7.16 K/uL High 1.8-7.0 Lymph # 2.44 K/uL 1.8-7.0 [place] # 0.68 K/uL 0.0-0.8 Eos # 0.05 K/uL 0.0-0.5 Baso # 0.02 K/uL Low 0.1-0.2 Laboratory test 06/17/2015 [facility] Slide Review . 40 finding [address] [place] [address] [phone] Laboratory test 06/17/2015 N2N/CCD Import Alanine 102 High 12-78 finding Aminotransferase (Alt/SGPT) Albumin 4.2 3.4-5.0 Albumin/Globulin Ratio 1.0 Alkaline Phosphatase 72 45-117 Anion Gap 8 8-16 Aspartate Amino Transf (Ast/Sgot) 32 15-37 BUN/Creatinine Ratio 18.0 Basophils # (Auto) 0.02 Low 0.1-0.2 Basophils (%) (Auto) 0.2 0.1-1.0 Blood Urea Nitrogen 18 7-18 Calcium Level 8.5 8.5-10.1 Carbon Dioxide Level 25 21-32 Chloride Level 107 98-107 Creatinine 1.0 0.6-1.3 Eosinophils # (Auto) 0.05 0.0-0.5 Eosinophils (%) (Auto) 0.5 0.0-5.0 Erythrocyte Sedimentation Rate 7 0-15 Ferritin 114 26-388 Globulin 4.1 1.9-4.3 Glucose Screen 99 74-106 Hematocrit 45.0 38.0-48.0 Hemoglobin 15.3 12.8-17.0 Iron Level 90 65-175 Lymphocytes # (Auto) 2.44 1.8-7.0 Lymphocytes (%) (Auto) 23.6 17.0-56.0 Manual Slide Review (Hematology) . Mean Corpuscular Hemoglobin 30.4 27.0-33.0 Mean Corpuscular Hemoglobin Concent 34.0 31.7-36.0 Mean Corpuscular Volume 89.5 80.0-96.0 Mean Platelet Volume 11.6 High 6.6-10.6 Monocytes # (Auto) 0.68 0.0-0.8 Monocytes (%) (Auto) 6.6 0.0-10.0 Neutrophils # (Auto) 7.16 High 1.8-7.0 Neutrophils (%) (Auto) 69.1 33.0-73.0 Platelet Count 388 150-400 Potassium Level 4.0 3.5-5.1 RDW Coefficient of Variation 13.2 11.6-15.8 Red Blood Count 5.03 4.20-5.80 Red Cell Distribution Width 42.3 36-51 Sodium Level 140 136-145 Total Bilirubin 0.4 0.2-1.0 Total Iron Binding Capacity 371 250-450 Total Protein 8.3 High 6.4-8.2 Transferrin % Saturation 24 12-57 Tumor Marker Alpha Fetoprotein 1.4 0.0-8.3 White Blood Count 10.4 3.4-10.5 Laboratory test 06/17/2015 [facility] Afp Tumor 1.4 ng/mL 0.0-8.3 [address] Marker,[place] [address] [phone] HCG,Beta Subunit,QN,(Serial) <1 mIU/mL 0-3 42 Iron-Tibc-%Sat 06/17/2015 [facility] Serum Iron 90 g/dL 65-[address] [place] [address] [phone] Total Iron Binding Capacity 371 g/dL 250-450 Transferrin %Saturation 24 % 12-57 Laboratory test 06/06/2015 N2N/CCD Import Urine Amphetamines Negative finding Screen Urine Barbiturates Screen Negative Urine Benzodiazepines Screen Negative Urine Bilirubin Negative Negative Urine Blood Negative Negative Urine Cannabinoids Screen Negative Urine Clarity Clear Clear Urine Cocaine Screen Negative Urine Color Yellow Yellow Urine Drug Screen Information * Urine Glucose (Ua) Negative Negative Urine Ketones Negative Negative Urine Leukocyte Esterase Negative Negative Urine Methadone Screen Negative Urine Nitrite Negative Negative Urine Opiates Screen Negative Urine Protein Negative Negative Urine Urobilinogen 0.2 0.2-1.0 Urine pH 5.5 Low 6.5-7.5 Laboratory test 06/06/2015 N2N/CCD Import Alanine 102 High 12-78 finding Aminotransferase (Alt/SGPT) Albumin 4.3 3.4-5.0 Albumin/Globulin Ratio 1.0 Alkaline Phosphatase 74 45-117 Anion Gap 9 8-16 Aspartate Amino Transf (Ast/Sgot) 31 15-37 BUN/Creatinine Ratio 19.0 Basophils # (Auto) 0.03 Low 0.1-0.2 Basophils % 2 0-2 Blood Urea Nitrogen 21 High 7-18 Calcium Level 8.9 8.5-10.1 Carbon Dioxide Level 26 21-32 Chloride Level 107 98-107 Creatinine 1.1 0.6-1.3 Differential Total Cells Counted 100 Eosinophils # (Auto) 0.05 0.0-0.5 Globulin 4.2 1.9-4.3 Glucose Screen 105 74-106 Hematocrit 44.4 38.0-48.0 Hemoglobin 15.1 12.8-17.0 Lymphocytes # (Auto) 3.84 1.8-7.0 Lymphocytes % 23 17-56 Manual Slide Review (Hematology) Diff Ordered Mean Corpuscular Hemoglobin 30.2 27.0-33.0 Mean Corpuscular Hemoglobin Concent 34.0 31.7-36.0 Mean Corpuscular Volume 88.8 80.0-96.0 Mean Platelet Volume 10.4 6.6-10.6 Monocytes # (Auto) 0.95 High 0.0-0.8 Monocytes % 4 0-10 Neutrophils # (Auto) 9.65 High 1.8-7.0 Neutrophils % 71 33-73 Platelet Count 392 150-400 Platelet Estimate Normal Potassium Level 3.7 3.5-5.1 RDW Coefficient of Variation 13.3 11.6-15.8 Red Blood Count 5.00 4.20-5.80 Red Cell Distribution Width 42.1 36-51 Sodium Level 142 136-145 Thyroid Stimulating Hormone (TSH) 3.08 0.36-3.74 Total Bilirubin 0.3 0.2-1.0 Total Protein 8.5 High 6.4-8.2 White Blood Count 14.5 High 3.4-10.5 Laboratory test finding 05/09/2015 N2N/CCD Import Atypical Lymphocytes % 3 0-7 Basophils # (Auto) 0.03 Low 0.1-0.2 Basophils % 1 0-2 Differential Comment Few LRG PLTS Seen Differential Total Cells Counted 100 Eosinophils # (Auto) 0.06 0.0-0.5 Eosinophils % 1 0-5 Hematocrit 45.1 38.0-48.0 Hemoglobin 15.2 12.8-17.0 Lymphocytes # (Auto) 3.75 1.8-7.0 Lymphocytes % 19 17-56 Manual Slide Review (Hematology) Diff Ordered Mean Corpuscular Hemoglobin 30.1 27.0-33.0 Mean Corpuscular Hemoglobin Concent 33.7 31.7-36.0 Mean Corpuscular Volume 89.3 80.0-96.0 Mean Platelet Volume 10.2 6.6-10.6 Monocytes # (Auto) 1.05 High 0.0-0.8 Monocytes % 5 0-10 Neutrophils # (Auto) 12.31 High 1.8-7.0 Neutrophils % 71 33-73 Platelet Count 410 High 150-400 Platelet Estimate Slight Increase RDW Coefficient of Variation 13.1 11.6-15.8 Red Blood Count 5.05 4.20-5.80 Red Cell Distribution Width 41.9 36-51 Thyroid Stimulating Hormone (TSH) 3.06 0.36-3.74 White Blood Count 17.2 High 3.4-10.5 Laboratory test 04/13/2015 N2N/CCD Import Activated Partial 29.5 23.9- 34.3 finding Thromboplast Time Alanine Aminotransferase (Alt/SGPT) 103 High 12-78 Albumin 3.9 3.4-5.0 Albumin/Globulin Ratio 0.9 Alkaline Phosphatase 70 45-117 Anion Gap 10 8-16 Aspartate Amino Transf (Ast/Sgot) 34 15-37 BUN/Creatinine Ratio 21.0 Basophils # (Auto) 0.03 Low 0.1-0.2 Basophils (%) (Auto) 0.2 0.1-1.0 Blood Urea Nitrogen 21 High 7-18 Calcium Level 8.1 Low 8.5-10.1 Carbon Dioxide Level 22 21-32 Chloride Level 108 High 98-107 Creatinine 1.0 0.6-1.3 Eosinophils # (Auto) 0.08 0.0-0.5 Eosinophils (%) (Auto) 0.5 0.0-5.0 Globulin 4.2 1.9-4.3 Glucose Screen 90 74-106 Inr International Normalized Ratio 1.1 0.9-1.1 Lipase 207 73-393 Lymphocytes # (Auto) 3.36 1.8-7.0 Lymphocytes (%) (Auto) 21.0 17.0-56.0 Monocytes # (Auto) 0.98 High 0.0-0.8 Monocytes (%) (Auto) 6.1 0.0-10.0 Neutrophils # (Auto) 11.52 High 1.8-7.0 Neutrophils (%) (Auto) 72.2 33.0-73.0 Potassium Level 3.9 3.5-5.1 Prothrombin Time 13.9 12.1-14.9 RDW Coefficient of Variation 13.0 11.6-15.8 Red Cell Distribution Width 41.9 36-51 Sodium Level 140 136-145 Total Bilirubin 0.2 0.2-1.0 Total Protein 8.1 6.4-8.2 Hematocrit 43.5 38.0-48.0 Hemoglobin 14.8 12.8-17.0 Mean Corpuscular Hemoglobin 30.4 27.0-33.0 Mean Corpuscular Hemoglobin Concent 34.0 31.7-36.0 Mean Corpuscular Volume 89.3 80.0-96.0 Mean Platelet Volume 10.1 6.6-10.6 Platelet Count 485 High 150-400 Red Blood Count 4.87 4.20-5.80 White Blood Count 16.0 High 3.4-10.5 Laboratory test 04/12/2015 N2N/[facility] [facility] Import Stool Occult Negative Negative finding Blood Laboratory test 04/04/2015 N2N/CCD Import Aerobic Blood No Growth: finding Culture Final Report Anaerobic Blood Culture No Growth: Final Report Laboratory test 04/04/2015 N2N/CCD Import Aerobic Blood No Growth: Final finding Culture Report Anaerobic Blood Culture No Growth: Final Report Lactic Acid Level 1.2 0.4-1.9 Laboratory test 04/04/2015 N2N/CCD Import Alanine Aminotransferase 79 High 12-78 finding (Alt/SGPT) Albumin 4.2 3.4-5.0 Albumin/Globulin Ratio 0.9 Alkaline Phosphatase 84 45-117 Anion Gap 12 8-16 Aspartate Amino Transf (Ast/Sgot) 27 15-37 BUN/Creatinine Ratio 16.1 Basophils # (Auto) 0.02 Low 0.1-0.2 Basophils (%) (Auto) 0.1 0.1-1.0 Blood Urea Nitrogen 21 High 7-18 Calcium Level 8.8 8.5-10.1 Carbon Dioxide Level 22 21-32 Chloride Level 105 98-107 Creatinine 1.3 0.6-1.3 Eosinophils # (Auto) 0.01 0.0-0.5 Eosinophils (%) (Auto) 0.1 0.0-5.0 Globulin 4.5 High 1.9-4.3 Glucose Screen 120 High 74-106 Lymphocytes # (Auto) 1.99 1.8-7.0 Lymphocytes (%) (Auto) 14.5 Low 17.0-56.0 Manual Slide Review (Hematology) See Note 43 Monocytes # (Auto) 1.23 High 0.0-0.8 Monocytes (%) (Auto) 9.0 0.0-10.0 Neutrophils # (Auto) 10.43 High 1.8-7.0 Neutrophils (%) (Auto) 76.3 High 33.0-73.0 Potassium Level 3.6 3.5-5.1 RDW Coefficient of Variation 13.2 11.6-15.8 Red Cell Distribution Width 42.3 36-51 Sodium Level 139 136-145 Total Bilirubin 0.7 0.2-1.0 Total Protein 8.7 High 6.4-8.2 CBC 11/07/2009 [facility] White Blood Count 8.7 K/uL 3.4-10.5 [address] [place] [address] [phone] Red Blood Count 4.85 M/uL 4.20-5.80 Hemoglobin 14.6 gm/dL 12.8-17.0 Hematocrit 43.4 % 38.0-48.0 Mean Cell Volume 89.5 fl 80.0-96.0 Mean Corpuscular HGB 30.1 pg 27.0-33.0 Mean Corpuscular HGB Conc 33.6 g/dL 31.7-36.0 Platelet Count 363 K/uL 150-400 Red Cell Distri Width %CV 12.8 % 11.6-15.8 Mean Platelet Volume 10.3 fL 6.6-10.6 Laboratory test finding 11/07/2009 [facility] Urine Screen See Note [address] [place] [phone] 1 C62.11 2 [employer] Electrochemiluminescence Immunoassay (ECLIA) Values obtained with different assay methods or kits cannot be used interchangeably. Results cannot be interpreted as absolute evidence of the presence or absence of malignant disease. This test is not interpretable in females. 3 Adult male reference interval is based on a population of healthy nonobese males (BMI <30) between 19 and 39 years old. Mikal, et.al. JCEM 2017,102;4114-9413. PMID: [id number]. 4 [employer] ECLIA methodology Performed at: [facility] [id number] Patrol Driver: Rita Natarajan MD, Phone: [phone] 5 Note: Persistent reduction for 3 months or more in an eGFR <60 mL/min/1.73 m2 defines CKD. Patients with eGFR values >/=60 mL/min/1.73 m2 may also have CKD if evidence of persistent proteinuria is present. The original MDRD equation for estimated GFR is not valid for patients less than 18 years of age. Additional information may be found at [email or web address]. 6 Normal values apply only to males and to non females. These results are not interpretable for females. [employer] ECLIA methodology. Values obtained with different assay methods or kits cannot be used interchangeably. Results cannot be interpreted as absolute evidence of the presence or absence of malignant disease. 7 Adult male reference interval is based on a population of healthy nonobese males (BMI <30) between 19 and 39 years old. Travmagdiel, et.al. JCEM 2017,102;1721-5231. PMID: [id number]. 8 [employer] ECLIA methodology 9 Note: Persistent reduction for 3 months or more in an eGFR <60 mL/min/1.73 m2 defines CKD. Patients with eGFR values >/=60 mL/min/1.73 m2 may also have CKD if evidence of persistent proteinuria is present. The original MDRD equation for estimated GFR is not valid for patients less than 18 years of age. Additional information may be found at [email or web address]. 10 Note: Persistent reduction for 3 months or more in an eGFR <60 mL/min/1.73 m2 defines CKD. Patients with eGFR values >/=60 mL/min/1.73 m2 may also have CKD if evidence of persistent proteinuria is present. The original MDRD equation for estimated GFR is not valid for patients less than 18 years of age. Additional information may be found at [email or web address]. 11 Normal values apply only to males and to non females. These results are not interpretable for females. [place] ECLIA methodology. Values obtained with different assay methods or kits cannot be used interchangeably. Results cannot be interpreted as absolute evidence of the presence or absence of malignant disease. 12 Adult male reference interval is based on a population of healthy nonobese males (BMI <30) between 19 and 39 years old. Travmagdiel, et.al. JCEM 2017,102;8024-0443. PMID: 25245614. 13 [place] ECLIA methodology Performed at: [address] [id number] Patrol Driver: Rita Natarajan MD, Phone: [phone] 14 Normal values apply only to males and to non females. These results are not interpretable for females. [place] ECLIA methodology. Values obtained with different assay methods or kits cannot be used interchangeably. Results cannot be interpreted as absolute evidence of the presence or absence of malignant disease. Performed at: [address] [id number] Patrol Driver: Rita Natarajan MD, Phone: [phone] 15 Adult male reference interval is based on a population of healthy nonobese males (BMI <30) between 19 and 39 years old. Travmagdiel, et.al. JCEM 2017,102;7699-2640. PMID: 88047632. 16 [place] ECLIA methodology Performed at: [address] [id number] Patrol Driver: Rita Natarajan MD, Phone: [phone] 17 SENT BY , "PROBLEM WITH IMPLANT" 18 Tests: CBC with differential Instructions: 19 CBC with differential 20 URINE, CLEAN CATCH 21 Note: Persistent reduction for 3 months or more in an eGFR <60 mL/min/1.73 m2 defines CKD. Patients with eGFR values >/=60 mL/min/1.73 m2 may also have CKD if evidence of persistent proteinuria is present. The original MDRD equation for estimated GFR is not valid for patients less than 18 years of age. Additional information may be found at www.[email or web address]. 22 12/02/161907: NEUT% previously reported as: 75.9 H % Amended result called to: [] - 12/02/16 at 190712/02/161907: LYMPH % previously reported as: 17.6 L % Amended result called to: [] 12/02/16 at 190712/02/161907: MONO % previously reported as: 6.0 % Amended result called to: [] 12/02/16 at 190712/02/161907: EO% previously reported as: 0.3 % Amended result called to: [] 12/02/16 at 190712/02/161907: BAS% previously reported as: 0.2 % Amended result called to: [] 12/02/16 at 1907 23 C62.11 D72.829 24 Adult male reference interval is based on a population of lean males up to 40 years old. 25 Cortisol AM 6.2 - 19.4 Cortisol PM 2.3 - 11.9 Performed at: [facility] [employer] [id number] Patrol Driver: Riat Natarajan MD, Phone: [id number] Effective September 21, 2016 the reference interval for Testosterone, Serum Males >18 years old will be changing to: Adult Males: 264 6 27 Adult male reference interval is based on a population of lean males up to 40 years old. 28 Method: Sediplast Modified [place]gren 29 C62.11 30 Normal values apply only to males and to non females. These results are not interpretable for females. [place] ECLIA methodology. Values obtained with different assay methods or kits cannot be used interchangeably. Results cannot be interpreted as absolute evidence of the presence or absence of malignant disease. 31 [place] ECLIA methodology Performed at: [facility] [employer] [id number] Patrol Driver: Rita Natarajan MD, Phone: [phone] Note: Persistent reduction for 3 months or more in an eGFR <60 mL/min/1.73 m2 defines CKD. Patients with eGFR values >/=60 mL/min/1.73 m2 may also have CKD if evidence of persistent proteinuria is present. The original MDRD equation for estimated GFR is not valid for patients less than 18 years of age. Additional information may be found at [email or web address]. 33 Instrument flagged sample for slide review. Less than 10% Bands seen, no other immature WBC's seen. RBC morphology essentially normal. Platelet estimate=NORMAL 34 Normal values apply only to males and to non females. These results are not interpretable for females. [place] ECLIA methodology. Values obtained with different assay methods or kits cannot be used interchangeably. Results cannot be interpreted as absolute evidence of the presence or absence of malignant disease. Performed at: [email or web address] [id number] Patrol Driver: Rita Natarajan MD, Phone: [phone] 35 Note: Persistent reduction for 3 months or more in an eGFR <60 mL/min/1.73 m2 defines CKD. Patients with eGFR values >/=60 mL/min/1.73 m2 may also have CKD if evidence of persistent proteinuria is present. The original MDRD equation for estimated GFR is not valid for patients less than 18 years of age. Additional information may be found at [email or web address]. 36 Note: Persistent reduction for 3 months or more in an eGFR <60 mL/min/1.73 m2 defines CKD. Patients with eGFR values >/=60 mL/min/1.73 m2 may also have CKD if evidence of persistent proteinuria is present. The original MDRD equation for estimated GFR is not valid for patients less than 18 years of age. Additional information may be found at [email or web address]. 37 Normal values apply only to males and to non females. These results are not interpretable for females. [place] ECLIA methodology. Values obtained with different assay methods or kits cannot be used interchangeably. Results cannot be interpreted as absolute evidence of the presence or absence of malignant disease. 38 [place] ECLIA methodology Performed at: [email or web address] [id number] Patrol Driver: Rita Natarajan MD, Phone: [phone] 39 Note: Persistent reduction for 3 months or more in an eGFR <60 mL/min/1.73 m2 defines CKD. Patients with eGFR values >/=60 mL/min/1.73 m2 may also have CKD if evidence of persistent proteinuria is present. The original MDRD equation for estimated GFR is not valid for patients less than 18 years of age. Additional information may be found at [email or web address]. 40 Instrument flagged sample for slide review. Less than 10% Bands seen, no other immature WBC's seen. RBC morphology essentially normal. Platelet estimate=NORMAL 41 Normal values apply only to males and to non females. These results are not interpretable for females. [employer] ECLIA methodology. Values obtained with different assay methods or kits cannot be used interchangeably. Results cannot be interpreted as absolute evidence of the presence or absence of malignant disease. 42 [place] ECLIA methodology Performed at: RN [facility] [address] [id number] Patrol Driver: Rita Natarajan MD, Phone: [phone] Instrument flagged sample for slide review. No immature WBC's noted. RBC morphology essentially normal. 44 NO SPECIMEN RECVED Procedures Date Code Description Status 01/19/2018 76275 EKG Interpretation And Report Only Completed 01/19/2018 34333 Remove Foreign Body Scrotum Completed 01/19/2018 41634 Scrotal Exploration Completed 11/25/2016 17028 Insert Testicular Prosthesis Completed 02/14/2010 16373 Remove venous access, +subq port or pump, central or Completed peripheral 11/12/2009 83550 Insert tunneled central venous catheter with subcutaneous Completed pump 04/02/2004 84960 Clavicle Fracture-closed w/o man Completed Encounters Type Date Location Provider Dx Diagnosis Office Visit 04/12/2018 Oncology Office Bonita Mahoney, Z85.47 Personal history 10:35a DO of malignant neoplasm of testis D72.829 Elevated white blood cell count, unspecified Office Visit 02/02/2018 3:30p Oncology Office Maru 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, 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 N50.82 Scrotal pain Office Visit 01/06/2018 1:45p Urology Reji T83.491D [facility] compl of Paulie Carcamo implanted testicular prosthesis, subs Office Visit 01/03/2018 11:00a Oncology Office B[place] 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 N50.82 Scrotal pain Office Visit 10/30/2016 2:00p Urology Dona Mendoza M.D. 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, 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 Office Visit 02/05/2016 8:15a Oncology Office Maru 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, 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 D72.829 Elevated white blood cell count, unspecified K62.5 Hemorrhage of anus and rectum Office Visit 08/30/2015 11:00a Oncology Office Maru 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, 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 Office Visit 06/24/2015 3:40p Oncology Office Maru 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, 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 Office Visit 05/13/2015 1:30p Oncology Office Maru 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, 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 D72.829 Elevated white blood cell count, unspecified Office Visit 04/26/2015 1:00p Oncology Office Maru 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 D72.829 Elevated white blood cell count, unspecified K62.5 Hemorrhage of anus and rectum Office Visit 04/16/2010 9:30a Surgical Office Harjit Saeed, 186.9 Malignant Neoplasm Testis Other & Unspec Office Visit 02/12/2010 8:30a Surgical Office Harjit Saeed, 186.9 Malignant Neoplasm Testis Other & Unspec Office Visit 11/07/2009 9:00a Surgical Office Harjit Saeed, 186.9 Malignant Neoplasm Testis Other & Unspec Plan of Treatment Future Appointment(s):07/11/2018 2:00 pm - Bonita Mahoney DO at Oncology [id number]/12/2018 - Bonita Mahoney DOZ85.47 Personal history of malignant neoplasm of testisComments:Patient clinically stable without any signs or symptoms suggestive of recurrent disease. I'm going to repeat the CAT scans.D72.829 Elevated white blood cell count, unspecifiedComments:Reactive leukocytosis. Considering the patient changes in the nasal congestion, enlarged and erythematous nasal turbinates, most likely responsible for increase white count, I will ask Dr. Bass for consultation.
--- OUTSIDE RECORDS SUMMARY | 2018-05-16 11:16 | XMS REPORT | Continuity of Care Document ---
:1990 External Reference #:[id number] Author Name Deshawn Valentin MD Address [address] [place] [place] [address] Care Team Providers Name Role Phone Deshawn Valentin MD Care Team Information Network Controller Unavailable Jeramie Buenrostro NP Primary Care Physician Unavailable Payers Date Identification Numbers Payment Provider Subscriber Effective: 2009 Policy Number: [id number] [employer] Darin Aggarwal PayID: [id number] [address] [place] [address] Advance Directives Description No Information Available Problems Date Description Provider Status Onset: 04/26/2015 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 has smoked on and days off since age 16 or 17 Smoking Status Reviewed: 05/09/18 Patient is a current smokes 1 cigarette smoker, smokes some qod. has smoked on and days off since age 16 or 17 Allergies, Adverse Reactions, Alerts Description No Known Drug Allergies Medications Medication Date Status Form Strength Qnty SIG Indications Ordering Provider No Active 05/09/ Active Unknown Medications 2018 No Active 04/12/ Hx Unknown Medications 2018 - 2018 Hydrocortisone 04/12/ Hx Cream 1% 28.350 applied to [facility], 2019 - joan Carcamo, 05/08/ incision Paulie 2019 site twice a day No Active 02/19/ Hx Unknown Medications 2016 - 2017 Amoxicillin/Clav 12/09/ Hx Tablets 875-125mg 20tabs Every 12 Unknown ulanate 2017 - Hours Potassium 2016 No Active 10/31/ Hx Christophe Ho Medications 2009 - MD Kp 2016 Sulfamethoxazole / Hx Tablets 800-160mg Wil, /Trimethoprim DS 0000 - Yaz 04/12/ MD Kelvin 2018 Immunizations Description No [...] kg/m2 BSA (Body Surface Area) 2.35 m2 [place] body weight in kilograms 70 kg O2 % BldC Oximetry 98 % Pain Level 0 01/25/2018 9:02am BP Systolic 153 mmHg BP Diastolic 88 mmHg Body Temperature 98.7 F Heart Rate 68 /min Respiratory Rate 16 /min Height 68 inches 5'8" Weight 277.38 lb BMI (Body Mass Index) 42.2 kg/m2 BSA (Body Surface Area) 2.35 m2 [place] body weight in kilograms 70 kg O2 [...] kg/m2 BSA (Body Surface Area) 2.37 m2 [place] body weight in kilograms 70 kg O2 % BldC Oximetry 96 % Pain Level 2 area of hematoma 02/19/2017 2:28pm BP Systolic 136 mmHg BP Diastolic 88 mmHg Body Temperature 97.6 F Heart Rate 74 /min Respiratory Rate 16 /min Height 68 inches 5'8" Weight 280.00 lb BMI (Body Mass Index) 42.6 kg/m2 BSA (Body Surface Area) 2.36 m2 [place] body weight in kilograms 70 kg O2 % BldC Oximetry 97 % Pain Level 3 Bottom part of testicle 12/10/2016 10:24am BP Systolic 133 mmHg BP Diastolic 83 mmHg Body Temperature 97.9 F 36.6c Heart Rate 59 /min Height 68 inches 5'8" Weight 274.00 lb BMI (Body Mass Index) 41.7 kg/m2 BSA (Body Surface Area) 2.34 m2 [place] body weight in kilograms 70 kg O2 % BldC Oximetry 97 % 10/30/2016 1:56pm BP Systolic 125 mmHg BP Diastolic 86 mmHg Body Temperature 98.9 F 37.2c Heart Rate 85 /min Respiratory Rate 20 /min Height 68 inches 5'8" Weight 270.25 lb BMI (Body Mass Index) 41.1 kg/m2 BSA (Body Surface Area) 2.32 m2 [place] body weight in kilograms 70 kg O2 [...] Result H/L Range Note Laboratory test 03/28/2018 [facility] Afp Tumor 2.6 ng/mL 0.0-8.3 1, [address] Marker,[place] [address] [phone] LDH 170 U/L N 87-241 Testosterone,Serum 288 ng/dL 264-916 3 HCG,Beta Subunit,QN,(Serial) <1 mIU/mL 0-3 4 CBS W/Automated 03/28/2018 [facility] White Blood 10.7 K/uL High 3.4-10.[address] [place] [address] [phone] Red Blood Count 4.92 M/uL N 4.20-5.80 [...] 33.0-73.0 Lymph % 33.0 % N 20.0-42.0 [place] % 6.4 % N 0.0-10.0 Eo% 1.3 % N 0.0-6.6 Bas% 0.3 % N 0.0-1.1 Neut# 6.29 K/uL N 1.8-7.0 Lymph # 3.51 K/uL N 1.0-4.0 [place] # 0.68 K/uL N 0.0-0.8 Eos # 0.14 K/uL N 0.0-0.5 Baso # 0.03 K/uL N 0.0-0.1 Comprehensive Metabolic 03/28/2018 [facility] Glucose 127 mg/dL High 74-[address] [place] [address] [phone] BUN 17 mg/dL N 7-18 Creatinine 1.0 [...] 80 U/L N 45-117 Laboratory test 01/25/2018 [facility] Afp Tumor 2.5 ng/mL 0.0-8.3 [address] Marker,Serum [place], [place] [address] [phone] LDH 175 U/L N 87-241 Testosterone,Serum 292 ng/dL 264-916 7 HCG,Beta Subunit,QN,(Serial) <1 mIU/mL 0-3 8 CBS W/Automated Diff 01/25/2018 [facility] White Blood 8.8 K/uL N 3.4-10.[address] Count [place], [place] [id number] [phone] Red Blood Count 4.95 M/uL N 4.20-5.80 [...] 33.0-73.0 Lymph % 28.9 % N 20.0-42.0 [place] % 6.5 % N 0.0-10.0 Eo% 0.6 % N 0.0-6.6 Bas% 0.1 % N 0.0-1.1 Neut# 5.64 K/uL N 1.8-7.0 Lymph # 2.55 K/uL N 1.0-4.0 [place] # 0.57 K/uL N 0.0-0.8 Eos # 0.05 K/uL N 0.0-0.5 Baso # 0.01 K/uL N 0.0-0.1 Comprehensive Metabolic 01/25/2018 [facility] Glucose 109 mg/dL High 74-[address] [place] [address] [phone] BUN 18 mg/dL N 7-18 Creatinine 1.1 [...] U/L N 45-117 CBS W/Automated Diff 12/16/2017 [facility] White Blood 9.7 K/uL N 3.4-10.[address] [place] [address] [phone] Red Blood Count 5.00 M/uL N 4.20-5.80 [...] 33.0-73.0 Lymph % 36.3 % N 20.0-42.0 [place] % 7.6 % N 0.0-10.0 Eo% 1.2 % N 0.0-6.6 Bas% 0.2 % N 0.0-1.1 Neut# 5.30 K/uL N 1.8-7.0 Lymph # 3.52 K/uL N 1.0-4.0 [place] # 0.74 K/uL N 0.0-0.8 Eos # 0.12 K/uL N 0.0-0.5 Baso # 0.02 K/uL N 0.0-0.1 Comprehensive Metabolic 12/16/2017 [facility] Glucose 115 mg/dL High 74-106 Panel [address] [place], [place] [address] [phone] BUN 14 mg/dL N 7-18 Creatinine 1.0 [...] 79 U/L N 45-117 Laboratory test 12/16/2017 [facility] Afp Tumor 1.6 ng/mL 0.0-8.3 [address] Marker,[place] [address] [phone] LDH 219 U/L N 87-241 Testosterone,Serum 331 ng/dL 264-916 12 HCG,Beta Subunit,QN,(Serial) <1 mIU/mL 0-3 13 Xray 08/30/2017 [facility] - Radiology CT, Chest, With Contrast <pending> [address] Materials [place], [place] [address] [phone] CT, Abdomen & Pelvis W Contrast <pending> CBS W/Automated 07/21/2017 [facility] White Blood 11.8 K/uL High 3.4-10.[address] [place] [address] [phone] Red Blood Count 4.93 M/uL N 4.20-5.80 [...] 33.0-73.0 Lymph % 33.7 % N 20.0-42.0 [place] % 7.1 % N 0.0-10.0 Eo% 0.9 % N 0.0-6.6 Bas% 0.2 % N 0.0-1.1 Neut# 6.88 K/uL N 1.8-7.0 Lymph # 3.99 K/uL N 1.0-4.0 [place] # 0.84 K/uL High 0.0-0.8 Eos # 0.11 K/uL N 0.0-0.5 Baso # 0.02 K/uL N 0.0-0.1 Laboratory test 07/21/2017 [facility] Afp Tumor 1.4 ng/mL 0.0-8.3 [address] Marker,Serum [place], [place] [address] [phone] LDH <pending> Testosterone,Serum 246 ng/dL Low 264-916 [...] hemoglobin concentration measurement (mass/volume) Aot Request 12/02/2016 [facility] Aot Request Test(s) 17, [address] added 18 [place] [address] [phone] Tests to be added: CBC with differe <SEE NOTE> 19 Ua RFX Micro & Culture 12/02/2016 [facility] Urine Color YELLOW Yellow II [address] [place] [address] [phone] Urine Clarity CLEAR Clear Urine Glucose - Dipstick NEGATIVE mg/dL Negative Urine Bilirubin - Dipstick NEGATIVE Negative Urine Ketone NEGATIVE mg/dL Negative Urine Specific [place] 1.020 N 1.010-1.030 Urine Blood NEGATIVE Negative [...] studies (set) studies (set) added CBC 12/02/2016 [facility] White Blood Count 14.9 K/uL High 3.4-10.5 [address] [place] [address] [phone] Red Blood Count 4.99 M/uL N 4.20-5.80 [...] 10.3 fL N 6.6-10.6 Comprehensive Metabolic 12/02/2016 [facility] Glucose 100 mg/dL N 74-106 Panel [address] [place] [address] [phone] BUN 16 mg/dL N 7-18 Creatinine 0.9 [...] 79 U/L N 45-117 CBS W/Automated 12/02/2016 [facility] White Blood 14.9 K/uL High 3.4-10.[address] [place] [address] [phone] Red Blood Count 4.99 M/uL N 4.20-5.80 [...] 1.8-7.0 Lymph # 2.54 K/uL N 1.0-4.0 [place] # 0.87 K/uL High 0.0-0.8 Eos # 0.05 K/uL N 0.0-0.5 Baso # 0.03 K/uL N 0.0-0.1 Slide Review 12/02/2016 [facility] Slide Review DIFF ORDERED [address] [place], [place] [address] [phone] Differential-WBC 12/02/2016 [facility] Total Cells 100 #CELLS Confirm [address] [place] [address] [phone] Band% 4 % N 0-8 Neutrophils% 69 [...] N2N/CCD Import BUN/Creat SerPl 17.7 Immunoglobulins 08/18/2016 [facility] Immunoglobulin 0429 512-4439 23 A/G/M, QN, Ser [address] G,Quant,Serum mg/dL [place], [place] [address] [phone] Immunoglobulin A 301 mg/dL 90-386 Immunoglobulin M [...] IgM measurement (mass/volume) (mass/volume) Laboratory test 08/18/2016 [facility] Cortisol,Random 8.6 . [address] g/[place] [address] [phone] Liver Function 08/18/2016 [facility] Total Protein 8.4 g/dL High 6.4-8.[address] [place] [address] [phone] Albumin 4.1 g/dL N 3.4-5.0 Globulin 4.3 g/dL N 1.9-4.3 Alb/Glob 1.0 ratio Bilirubin,Total 0.4 mg/dL N 0.2-1.0 Bilirubin,Direct < 0.1 mg/dL N 0.0-0.2 Bilirubin,Indirect 0.3 mg/dL N 0.0-0.9 Sgot/Ast 41 U/L High 15-37 SGPT/Alt 84 U/L High 12-78 Alkaline Phosphatase 67 U/L N 45-117 Testosterone,Serum 08/18/2016 [facility] Testosterone,Serum 276 Low 348-[address] ng/[place] [address] [phone] Comment (SEE NOTE) 27 Serum or plasma 08/18/2016 N2N/CCD Import Serum or plasma 0.3 0.0-0.9 indirect bilirubin indirect bilirubin measurement (ma measurement (mass/volume) Serum or plasma 08/18/2016 N2N/CCD Import Serum or plasma IgA 301 90- 386 IgA measurement measurement (mass/volume) (mass/volume) Serum or plasma 08/18/2016 N2N/CCD Import Serum or plasma IgG 1300 700- 1600 IgG measurement measurement (mass/volume) (mass/volume) Laboratory test 08/18/2016 [facility] Sedimentation Rate 6 mm/hr N 0-15 [address] [place] [address] [phone] Gamma Glutamyl Transpeptidase 50 U/L N 5-85 Eosinophil/leuk NFr 08/12/2016 N2N/CCD Import Eosinophil/leuk NFr 1.3 0.0-6.6 Bld Auto Bld Auto Lymphocytes/leuk 08/12/2016 N2N/CCD Import Lymphocytes/leuk 33.4 20.0- 42.0 NFr Bld Auto NFr Bld Auto Monocytes/leuk NFr 08/12/2016 N2N/CCD Import Monocytes/leuk NFr 7.1 0.0- 10.0 Bld Auto Bld Auto Laboratory test 08/12/2016 [facility] Afp Tumor 1.3 0.0-8.3 29, [address] Marker,Serum ng/[place] [address] [phone] LDH 215 U/L N 87-241 HCG,Beta Subunit,QN,(Serial) <1 mIU/mL 0-3 31 Neutrophils/leuk NFr 08/12/2016 N2N/CCD Import Neutrophils/leuk 58.0 33.0-73.0 Bld Auto NFr Bld Auto Serum or plasma 08/12/2016 N2N/CCD Import Serum or plasma 1.3 0.0-8.3 [id number]-[id number]. [id number]-[id number] tumor marker m .tumor marker measurement (mass/volume) Serum or plasma 08/12/2016 N2N/CCD Import Serum or plasma 215 87-241 lactate lactate dehydrogenase dehydrogenase measurement measurement (enzymatic activity/volume) CBS W/Automated Diff 08/12/2016 [facility] White Blood Count 12.6 High 3.4- 10.[address] K/[place] [address] [phone] Red Blood Count 4.97 M/uL N 4.20-5.80 [...] 33.0-73.0 Lymph % 33.4 % N 20.0-42.0 [place] % 7.1 % N 0.0-10.0 Eo% 1.3 % N 0.0-6.6 Bas% 0.2 % N 0.0-1.1 Neut# 7.29 K/uL High 1.8-7.0 Lymph # 4.20 K/uL High 1.0-4.0 [place] # 0.89 K/uL High 0.0-0.8 Eos # 0.16 K/uL N 0.0-0.5 Baso # 0.03 K/uL N 0.0-0.1 Comprehensive Metabolic 08/12/2016 [facility] Glucose 79 mg/dL N 74-106 Panel [address] [place], [place] [address] [phone] BUN 17 mg/dL N 7-18 Creatinine 0.9 [...] 67 U/L N 45-117 Slide Review 08/12/2016 [facility] Slide Review . 33 [address] [place] [address] [phone] Basophils/leuk 08/12/2016 N2N/CCD Import Basophils/leuk 0.2 0.0-1.1 NFr Bld Auto NFr Bld Auto CBS W/Automated 04/20/2016 [facility] White Blood 7.9 K/uL N 3.4-10.[address] [place] [address] [phone] Red Blood Count 4.97 M/uL N 4.20-5.80 [...] 33.0-73.0 Lymph % 30.7 % N 20.0-42.0 [place] % 8.7 % N 0.0-10.0 Eo% 1.1 % N 0.0-6.6 Bas% 0.3 % N 0.0-1.1 Neut# 4.70 K/uL N 1.8-7.0 Lymph # 2.44 K/uL N 1.0-4.0 [place] # 0.69 K/uL N 0.0-0.8 Eos # 0.09 K/uL N 0.0-0.5 Baso # 0.02 K/uL N 0.0-0.1 Laboratory test finding 04/20/2016 [facility] LDH 205 U/L N 87-241 [address] [place] [address] [phone] Afp Tumor Marker,Serum 1.5 ng/mL 0.0-8.3 34 Comprehensive Metabolic 04/20/2016 [facility] Glucose 87 mg/dL N 74-106 Panel [address] [place] [address] [phone] BUN 20 mg/dL High 7-18 Creatinine 1.0 [...] 67 U/L N 45-117 [facility] <[facility]> finding [address] [place] [address] [phone] Comprehensive 02/05/2016 [facility] Glucose 61 mg/dL Low 74-106 Metabolic Panel [address] [place] [address] [phone] BUN 19 mg/dL High 7-18 Creatinine 1.1 [...] U/L N 45-117 CBS W/Automated Diff 02/05/2016 [facility] White Blood 8.6 K/uL N 3.4-10.[address] [place] [address] [phone] Red Blood Count 5.23 M/uL N 4.20-5.80 [...] 33.0-73.0 Lymph % 23.3 % N 17.0-56.0 [place] % 7.3 % N 0.0-10.0 Eo% 1.0 % N 0.0-5.0 Bas% 0.1 % N 0.1-1.0 Neut# 5.85 K/uL N 1.8-7.0 Lymph # 2.00 K/uL N 1.8-7.0 [place] # 0.63 K/uL N 0.0-0.8 Eos # 0.09 K/uL N 0.0-0.5 Baso # 0.01 K/uL Low 0.1-0.2 Laboratory test finding 02/05/2016 [facility] LDH 213 U/L N 87-[address] [place] [address] [phone] BHCG Tumor MRKR <pending> Sedimentation Rate 5 [...] Negative Urine Protein Negative Negative Urine Specific [place] 1.015 1.010-1.030 Urine Urobilinogen 0.2 0.2-1.0 Urine pH 7.0 6.5-7.5 Laboratory test finding 06/17/2015 [facility] Ferritin 114 ng/mL 26-388 [address] [place] [address] [phone] Sedimentation Rate 7 mm/hr 0-15 Comprehensive Metabolic 06/17/2015 [facility] Glucose 99 mg/dL 74-106 Panel [address] [place] [address] [phone] BUN 18 mg/dL 7-18 Creatinine 1.0 mg/dL [...] Phosphatase 72 U/L 45-117 CBC W/Automated 06/17/2015 [facility] White Blood 10.4 K/uL 3.4-10.[address] Diff [address] [place] [address] [phone] Red Blood Count 5.03 M/uL 4.20-5.80 Hemoglobin [...] % 33.0-73.0 Lymph % 23.6 % 17.0-56.0 [place] % 6.6 % 0.0-10.0 Eo% 0.5 % 0.0-5.0 Bas% 0.2 % 0.1-1.0 Neut# 7.16 K/uL High 1.8-7.0 Lymph # 2.44 K/uL 1.8-7.0 [place] # 0.68 K/uL 0.0-0.8 Eos # 0.05 K/uL 0.0-0.5 Baso # 0.02 K/uL Low 0.1-0.2 Laboratory test 06/17/2015 [facility] Slide Review . 40 finding [address] [place] [address] [phone] Laboratory test 06/17/2015 N2N/CCD Import Alanine 102 [...] Blood Count 10.4 3.4-10.5 Laboratory test 06/17/2015 [facility] Afp Tumor 1.4 ng/mL 0.0-8.3 [address] Marker,[place] [address] [phone] HCG,Beta Subunit,QN,(Serial) <1 mIU/mL 0-3 42 Iron-Tibc-%Sat 06/17/2015 [facility] Serum Iron 90 g/dL 65-[address] [place] [address] [phone] Total Iron Binding Capacity 371 g/dL 250-450 [...] Count 16.0 High 3.4-10.5 Laboratory test 04/12/2015 [employer] Stool Occult Negative Negative finding Blood Laboratory test 04/04/2015 N[facility]N/[facility] Import Aerobic Blood No Growth: finding Culture Final Report Anaerobic Blood Culture No Growth: Final Report Laboratory test 04/04/2015 [facility] Import Aerobic Blood No Growth: Final finding [...] Total Protein 8.7 High 6.4-8.2 CBC 11/07/2009 [facility] White Blood Count 8.7 K/uL 3.4-10.5 [address] [place] [address] [phone] Red Blood Count 4.85 M/uL 4.20-5.80 Hemoglobin 14.6 gm/dL 12.8-17.0 Hematocrit 43.4 % 38.0-48.0 Mean Cell Volume 89.5 fl 80.0-96.0 Mean Corpuscular HGB 30.1 pg 27.0-33.0 Mean Corpuscular HGB Conc 33.6 g/dL 31.7-36.0 Platelet Count 363 K/uL 150-400 Red Cell Distri Width %CV 12.8 % 11.6-15.8 Mean Platelet Volume 10.3 fL 6.6-10.6 Laboratory test finding 11/07/2009 [facility] Urine Screen See Note [address] [place] [address] [phone] 1 C62.11 2 [employer] Electrochemiluminescence Immunoassay [...] and 39 years old. Mikal, et.al. JCEM 2017,102;8954-3516. PMID: 39730063. 4 [employer] ECL[employer] methodology Performed at: [facility] [id number] Greeting Card Maker: Rita Natarajan MD, Phone: [phone] 5 Note: Persistent reduction for 3 months [...] <30) between 19 and 39 years old. Jaison, et.al. JCEM 2017,102;9460-8710. PMID: 06709279. 8 [employer] ECLIA methodology 9 Note: Persistent [...] <30) between 19 and 39 years old. Travison, et.al. JCEM 2017,102;2114-7405. PMID: 00033931. 13 [employer] ECL[employer] methodology Performed at: [facility] [id number] Greeting Card Maker: Rita Natarajan MD, Phone: [phone] 14 Normal values apply only to males and to non females. These results are not interpretable for females. [employer] ECLIA methodology. Values obtained with different assay methods or kits cannot be used interchangeably. Results cannot be interpreted as absolute evidence of the presence or absence of malignant disease. Performed at: [facility] [address] [id number] Greeting Card Maker: Rita Natarajan MD, Phone: [phone] 15 Adult male reference interval is based on a population of healthy nonobese males (BMI <30) between 19 and 39 years old. Travison, et.al. JCEM 2017,102;6023-8263. PMID: 80827878. 16 [employer] methodology Performed at: [facility] [address] [id number] Greeting Card Maker: Rita Natarajan MD, Phone: [phone] 17 SENT BY , "PROBLEM WITH IMPLANT" [...] information may be found at [email or web address]. 22 12/02/16 190: NEUT% previously reported as: 75.9 H % Amended result called to: [] - 12/02/16 at 190712/02/16 190: LYMPH % previously reported as: 17.6 L % Amended result called to: [] 12/02/16 at 190712/02/16 1908: MONO % previously reported as: 6.0 % Amended result called to: [] 12/02/16 at 190712/02/16 1908: EO% previously reported as: 0.3 % Amended result called to: [] 12/02/16 at 190712/02/16 1908: BAS% previously reported as: 0.2 % Amended result called to: [] 12/02/16 at 8 23 C62.11 D72.829 24 Adult male reference interval is based on a population of lean males up to 40 years old. 25 Cortisol AM 6.2 - 19.4 Cortisol PM 2.3 - 11.9 Performed at: [facility] [employer] [facility] [id number] Greeting Card Maker: Riat Natarajan MD, Phone: [phone] 26 Effective September 21, 2016 the reference interval for Testosterone, Serum Males >18 years old will be changing to: Adult Males: 264 - 976 27 Adult male reference interval is based on a population of lean males up to 40 years old. 28 Method: Sediplast Modified Linda 29 C62.11 30 Normal values apply only to males and to non females. These results are not interpretable for females. [employer] ECL[employer] methodology. Values obtained with different assay methods or kits cannot be used interchangeably. Results cannot be interpreted as absolute evidence of the presence or absence of malignant disease. 31 [employer] methodology Performed at: [address] [id number] Greeting Card Maker: Rita Natarajan MD, Phone: [phone] 32 Note: Persistent reduction for 3 months [...] These results are not interpretable for females. [employer] ECLIA methodology. Values obtained with different assay methods or kits cannot be used interchangeably. Results cannot be interpreted as absolute evidence of the presence or absence of malignant disease. Performed at: [address] [id number] Greeting Card Maker: Rita Natarajan MD, Phone: [phone] 35 Note: Persistent reduction for 3 months [...] disease. 38 [employer] ECLIA methodology Performed at: [facility] [id number] Greeting Card Maker: Rita Natarajan MD, Phone: [phone] 39 Note: Persistent reduction for 3 months [...] disease. 42 [employer] ECLIA methodology Performed at: [facility] [address] [id number] Greeting Card Maker: Rita Natarajan MD, Phone: [phone] 43 Instrument flagged sample for slide review. No immature WBC's noted. RBC morphology essentially normal. 44 NO SPECIMEN RECVED Procedures Date Code Description Status 05/09/2018 12652 Eye Exam New Patient Comprehensive Completed 01/19/2018 56283 EKG Interpretation And Report Only Completed 01/19/2018 10534 Remove Foreign Body Scrotum Completed 01/19/2018 32648 Scrotal Exploration Completed 11/25/2016 61105 Insert Testicular Prosthesis Completed 02/14/2010 69512 Remove venous access, +subq port or pump, central or Completed peripheral 11/12/2009 52614 Insert tunneled central venous catheter with subcutaneous Completed pump 04/02/2004 32538 Clavicle Fracture-closed w/o man Completed Encounters Type Date Location Provider Dx Diagnosis Office Visit 04/12/2018 Oncology Office Bonita Mahoney, Z85.47 Personal history 10:35a DO of malignant neoplasm of testis D72.829 Elevated white blood cell count, unspecified Office Visit 02/02/2018 3:30p Oncology Office Mar[facility] 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 N50.82 Scrotal pain Office Visit 01/06/2018 1:45p Urology Reji T83.491D [facility] compl of Paulie Carcamo implanted testicular prosthesis, subs Office Visit 01/03/2018 11:00a Oncology Office [place] 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, 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 N50.82 Scrotal pain Office Visit 09/06/2017 1:00p Oncology Office [place] 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, 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 D72.829 Elevated white blood cell count, unspecified Office Visit 07/30/2017 8:00a Oncology Office [place] 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 N50.82 Scrotal pain Office Visit 10/30/2016 2:00p Urology Dona Mendoza M.D. 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 Office Visit 08/25/2016 10:30a Oncology Office [place], 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, 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 R63.5 Abnormal weight gain Office Visit 08/18/2016 10:15a Oncology Office [place] 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, 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 D72.829 Elevated white blood cell count, unspecified R63.5 Abnormal weight gain Office Visit 04/22/2016 1:00p Oncology Office [place], 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, 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 Office Visit 04/20/2016 9:00a Oncology Office [place], 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, 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 Office Visit 02/05/2016 8:15a Oncology Office [place], 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, 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 D72.829 Elevated white blood cell count, unspecified K62.5 Hemorrhage of anus and rectum Office Visit 08/30/2015 11:00a Oncology Office [place] 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, 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 Office Visit 06/24/2015 3:40p Oncology Office [place] 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, 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 Office Visit 05/13/2015 1:30p Oncology Office Landry Mahoney2.11 Malignant Bonita, 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 D72.829 Elevated white blood cell count, unspecified Office Visit 04/26/2015 1:00p Oncology Office Landry Mahoney2.11 Malignant Bonita, DO neoplasm of descended right [...] pm - Bonita Mahoney DO at Oncology [id number]/09/2018 - Deshawn Valentin MDH00.015 Hordeolum externum left lower eyelidComments:- no sign of cellulitis- warm compresses: 2-3 minutes at a time, 2-3 times daily- artificial tears- neomycin/polymyxin/dexamethasone 1 drop left eye 2-3 times daily for 1 week- can consider I&D if it does not resolveplease call with ? or concernsFollow up:please call with ? or concerns
--- OUTSIDE RECORDS SUMMARY | 2018-05-16 11:17 | XMS REPORT | Continuity of Care Document ---
:1990 External Reference #:[id number] Author Name Alba Lindsay Care Team Providers Name Role Phone Lola Anderson PA Care Team Information Staff Registered Nurse Unavailable Lola Anderson PA Primary Care Physician Unavailable Payers Date Identification Numbers Payment Provider Subscriber Effective: 2009 Policy Number: [id number] [employer] Darin Aggarwal PayID: [id number] [address] [place] [address] Advance Directives Description No Information Available Problems [...] no dietary restrictions Occupation Currently Working [employer] Tobacco Use Start: Unknown Never Smoked Cigarettes [...] 04/12/ Active Cream 1% 28.350 applied to [facility], 2018 gm the raman Carcamo M.D. site [...] kg/m2 BSA (Body Surface Area) 2.35 m2 [place] body weight in kilograms 70 kg O2 % BldC Oximetry 98 % Pain Level 0 01/25/2018 9:02am BP Systolic 153 mmHg BP Diastolic 88 mmHg Body Temperature 98.7 F Heart Rate 68 /min Respiratory Rate 16 /min Height 68 inches 5'8" Weight 277.38 lb BMI (Body Mass Index) 42.2 kg/m2 BSA (Body Surface Area) 2.35 m2 [place] body weight in kilograms 70 kg O2 [...] kg/m2 BSA (Body Surface Area) 2.37 m2 [place] body weight in kilograms 70 kg O2 % BldC Oximetry 96 % Pain Level 2 area of hematoma 02/19/2017 2:28pm BP Systolic 136 mmHg BP Diastolic 88 mmHg Body Temperature 97.6 F Heart Rate 74 /min Respiratory Rate 16 /min Height 68 inches 5'8" Weight 280.00 lb BMI (Body Mass Index) 42.6 kg/m2 BSA (Body Surface Area) 2.36 m2 [place] body weight in kilograms 70 kg O2 % BldC Oximetry 97 % Pain Level 3 Bottom part of testicle 12/10/2016 10:24am BP Systolic 133 mmHg BP Diastolic 83 mmHg Body Temperature 97.9 F 36.6c Heart Rate 59 /min Height 68 inches 5'8" Weight 274.00 lb BMI (Body Mass Index) 41.7 kg/m2 BSA (Body Surface Area) 2.34 m2 [place] body weight in kilograms 70 kg O2 % BldC Oximetry 97 % 10/30/2016 1:56pm BP Systolic 125 mmHg BP Diastolic 86 mmHg Body Temperature 98.9 F 37.2c Heart Rate 85 /min Respiratory Rate 20 /min Height 68 inches 5'8" Weight 270.25 lb BMI (Body Mass Index) 41.1 kg/m2 BSA (Body Surface Area) 2.32 m2 [place] body weight in kilograms 70 kg O2 [...] Result H/L Range Note Laboratory test 03/28/2018 [facility] Afp Tumor 2.6 ng/mL 0.0-8.3 1, [address] [place] [address] [phone] LDH 170 U/L N 87-241 Testosterone,Serum 288 ng/dL 264-916 3 HCG,Beta Subunit,QN,(Serial) <1 mIU/mL 0-3 4 CBS W/Automated 03/28/2018 [facility] White Blood 10.7 K/uL High 3.4-10.[address] Count [place], [place] [address] [phone] Red Blood Count 4.92 M/uL N 4.20-5.80 [...] 33.0-73.0 Lymph % 33.0 % N 20.0-42.0 Evans % 6.4 % N 0.0-10.0 Eo% 1.3 % N 0.0-6.6 Bas% 0.3 % N 0.0-1.1 Neut# 6.29 K/uL N 1.8-7.0 Lymph # 3.51 K/uL N 1.0-4.0 Evans # 0.68 K/uL N 0.0-0.8 Eos # 0.14 K/uL N 0.0-0.5 Baso # 0.03 K/uL N 0.0-0.1 Comprehensive Metabolic 03/28/2018 [facility] Glucose 127 mg/dL High 74-[address] [place], [place] [id number] [phone] BUN 17 mg/dL N 7-18 Creatinine 1.0 [...] 80 U/L N 45-117 Laboratory test 01/25/2018 [facility] Afp Tumor 2.5 ng/mL 0.0-8.3 [address] Marker,[place]um [place], [place] [address] [phone] LDH 175 U/L N 87-241 Testosterone,Serum 292 ng/dL 264-916 7 HCG,Beta Subunit,QN,(Serial) <1 mIU/mL 0-3 8 CBS W/Automated Diff 01/25/2018 [facility] White Blood 8.8 K/uL N 3.4-10.[address] Count [place], [place] [address] [phone] Red Blood Count 4.95 M/uL N 4.20-5.80 [...] 33.0-73.0 Lymph % 28.9 % N 20.0-42.0 Evans % 6.5 % N 0.0-10.0 Eo% 0.6 % N 0.0-6.6 Bas% 0.1 % N 0.0-1.1 Neut# 5.64 K/uL N 1.8-7.0 Lymph # 2.55 K/uL N 1.0-4.0 Evans # 0.57 K/uL N 0.0-0.8 Eos # 0.05 K/uL N 0.0-0.5 Baso # 0.01 K/uL N 0.0-0.1 Comprehensive Metabolic 01/25/2018 [facility] Glucose 109 mg/dL High 74-[address] [place], [place] [address] [phone] BUN 18 mg/dL N 7-18 Creatinine 1.1 [...] U/L N 45-117 CBS W/Automated Diff 12/16/2017 [facility] White Blood 9.7 K/uL N 3.4-10.[address] [place] [address] [phone] Red Blood Count 5.00 M/uL N 4.20-5.80 [...] 33.0-73.0 Lymph % 36.3 % N 20.0-42.0 Evans % 7.6 % N 0.0-10.0 Eo% 1.2 % N 0.0-6.6 Bas% 0.2 % N 0.0-1.1 Neut# 5.30 K/uL N 1.8-7.0 Lymph # 3.52 K/uL N 1.0-4.0 Evans # 0.74 K/uL N 0.0-0.8 Eos # 0.12 K/uL N 0.0-0.5 Baso # 0.02 K/uL N 0.0-0.1 Comprehensive Metabolic 12/16/2017 [facility] Glucose 115 mg/dL High 74-[address] [place] [address] [phone] BUN 14 mg/dL N 7-18 Creatinine 1.0 [...] 79 U/L N 45-117 Laboratory test 12/16/2017 [facility] Afp Tumor 1.6 ng/mL 0.0-8.3 [address] Marker,[place] [address] [phone] LDH 219 U/L N 87-241 Testosterone,Serum 331 ng/dL 264-916 12 HCG,Beta Subunit,QN,(Serial) <1 mIU/mL 0-3 13 Xray 08/30/2017 [facility] - Radiology CT, Chest, With Contrast <pending> [address] [place] [address] [phone] CT, Abdomen & Pelvis W Contrast <pending> CBS W/Automated 07/21/2017 [facility] White Blood 11.8 K/uL High 3.4-10.[address] [place] [address] [phone] Red Blood Count 4.93 M/uL N 4.20-5.80 [...] 33.0-73.0 Lymph % 33.7 % N 20.0-42.0 Evans % 7.1 % N 0.0-10.0 Eo% 0.9 % N 0.0-6.6 Bas% 0.2 % N 0.0-1.1 Neut# 6.88 K/uL N 1.8-7.0 Lymph # 3.99 K/uL N 1.0-4.0 Evans # 0.84 K/uL High 0.0-0.8 Eos # 0.11 K/uL N 0.0-0.5 Baso # 0.02 K/uL N 0.0-0.1 Laboratory test 07/21/2017 [facility] Afp Tumor 1.4 ng/mL 0.0-8.3 [address] Marker,[place] [address] [phone] LDH <pending> Testosterone,Serum 246 ng/dL Low 264-916 [...] hemoglobin concentration measurement (mass/volume) Aot Request 12/02/2016 [facility] Aot Request Test(s) 17, [address] added 18 [place] [address] [phone] Tests to be added: CBC with differe <SEE NOTE> 19 Ua RFX Micro & Culture 12/02/2016 [facility] Urine Color YELLOW Yellow II [address] [place] [address] [phone] Urine Clarity CLEAR Clear Urine Glucose - Dipstick NEGATIVE mg/dL Negative Urine Bilirubin - Dipstick NEGATIVE Negative Urine Ketone NEGATIVE mg/dL Negative Urine Specific [place] 1.020 N 1.010-1.030 Urine Blood NEGATIVE Negative [...] studies (set) studies (set) added CBC 12/02/2016 [facility] White Blood Count 14.9 K/uL High 3.4-10.5 [address] [place] [address] [phone] Red Blood Count 4.99 M/uL N 4.20-5.80 [...] 10.3 fL N 6.6-10.6 Comprehensive Metabolic 12/02/2016 [facility] Glucose 100 mg/dL N 74-106 Panel [address] [place] [address] [phone] BUN 16 mg/dL N 7-18 Creatinine 0.9 [...] 79 U/L N 45-117 CBS W/Automated 12/02/2016 [facility] White Blood 14.9 K/uL High 3.4-10.[address] [place] [address] [phone] Red Blood Count 4.99 M/uL N 4.20-5.80 [...] 1.8-7.0 Lymph # 2.54 K/uL N 1.0-4.0 Evans # 0.87 K/uL High 0.0-0.8 Eos # 0.05 K/uL N 0.0-0.5 Baso # 0.03 K/uL N 0.0-0.1 Slide Review 12/02/2016 [facility] Slide Review DIFF ORDERED [address] [place] [address] [phone] Differential-WBC 12/02/2016 [facility] Total Cells 100 #CELLS Confirm [address] [place] [address] [phone] Band% 4 % N 0-8 Neutrophils% 69 [...] N2N/CCD Import BUN/Creat SerPl 17.7 Immunoglobulins 08/18/2016 [facility] Immunoglobulin [phone] 23 A/G/M, QN, Ser [address] G,Quant,Serum mg/[place] [address] [phone] Immunoglobulin A 301 mg/dL 90-386 Immunoglobulin M [...] IgM measurement (mass/volume) (mass/volume) Laboratory test 08/18/2016 [facility] Cortisol,Random 8.6 . [address] g/[place] [address] [phone] Liver Function 08/18/2016 [facility] Total Protein 8.4 g/dL High 6.4-8.[address] [place] [address] [phone] Albumin 4.1 g/dL N 3.4-5.0 Globulin 4.3 g/dL N 1.9-4.3 Alb/Glob 1.0 ratio Bilirubin,Total 0.4 mg/dL N 0.2-1.0 Bilirubin,Direct < 0.1 mg/dL N 0.0-0.2 Bilirubin,Indirect 0.3 mg/dL N 0.0-0.9 Sgot/Ast 41 U/L High 15-37 SGPT/Alt 84 U/L High 12-78 Alkaline Phosphatase 67 U/L N 45-117 Testosterone,Serum 08/18/2016 [facility] Testosterone,Serum 276 Low 348-[address] ng/dL [place], [place] [address] [phone] Comment (SEE NOTE) 27 Serum or plasma 08/18/2016 N2N/CCD Import Serum or plasma 0.3 0.0-0.9 indirect bilirubin indirect bilirubin measurement (ma measurement (mass/volume) Serum or plasma 08/18/2016 N2N/CCD Import Serum or plasma IgA 301 90- 386 IgA measurement measurement (mass/volume) (mass/volume) Serum or plasma 08/18/2016 N2N/CCD Import Serum or plasma IgG 1300 700- 1600 IgG measurement measurement (mass/volume) (mass/volume) Laboratory test 08/18/2016 [facility] Sedimentation Rate 6 mm/hr N 0-15 [address] [place] [address] [phone] Gamma Glutamyl Transpeptidase 50 U/L N 5-85 Eosinophil/leuk NFr 08/12/2016 N2N/CCD Import Eosinophil/leuk NFr 1.3 0.0-6.6 Bld Auto Bld Auto Lymphocytes/leuk 08/12/2016 N2N/CCD Import Lymphocytes/leuk 33.4 20.0- 42.0 NFr Bld Auto NFr Bld Auto Monocytes/leuk NFr 08/12/2016 N2N/CCD Import Monocytes/leuk NFr 7.1 0.0- 10.0 Bld Auto Bld Auto Laboratory test 08/12/2016 [facility] Afp Tumor 1.3 0.0-8.3 29, [address] Marker,Serum ng/[place] [address] [phone] LDH 215 U/L N 87-241 HCG,Beta Subunit,QN,(Serial) <1 mIU/mL 0-3 31 Neutrophils/leuk NFr 08/12/2016 N2N/CCD Import Neutrophils/leuk 58.0 33.0-73.0 Bld Auto NFr Bld Auto Serum or plasma 08/12/2016 N2N/CCD Import Serum or plasma 1.3 0.0-8.3 kvddt-2-pcyelggxizh. epirq-3-friucywlzpl tumor marker m .tumor marker measurement (mass/volume) Serum or plasma 08/12/2016 N2N/CCD Import Serum or plasma 215 87-241 lactate lactate dehydrogenase dehydrogenase measurement measurement (enzymatic activity/volume) CBS W/Automated Diff 08/12/2016 [facility] White Blood Count 12.6 High 3.4- 10.[address] K/[place] [address] [phone] Red Blood Count 4.97 M/uL N 4.20-5.80 [...] 33.0-73.0 Lymph % 33.4 % N 20.0-42.0 Evans % 7.1 % N 0.0-10.0 Eo% 1.3 % N 0.0-6.6 Bas% 0.2 % N 0.0-1.1 Neut# 7.29 K/uL High 1.8-7.0 Lymph # 4.20 K/uL High 1.0-4.0 Evans # 0.89 K/uL High 0.0-0.8 Eos # 0.16 K/uL N 0.0-0.5 Baso # 0.03 K/uL N 0.0-0.1 Comprehensive Metabolic 08/12/2016 [facility] Glucose 79 mg/dL N 74-106 Panel [address] [place], [place] [address] [phone] BUN 17 mg/dL N 7-18 Creatinine 0.9 [...] 67 U/L N 45-117 Slide Review 08/12/2016 [facility] Slide Review . 33 [address] [place] [address] [phone] Basophils/leuk 08/12/2016 N2N/CCD Import Basophils/leuk 0.2 0.0-1.1 NFr Bld Auto NFr Bld Auto CBS W/Automated 04/20/2016 [facility] White Blood 7.9 K/uL N 3.4-10.5 Diff [address] [place] [address] [phone] Red Blood Count 4.97 M/uL N 4.20-5.80 [...] 33.0-73.0 Lymph % 30.7 % N 20.0-42.0 Evans % 8.7 % N 0.0-10.0 Eo% 1.1 % N 0.0-6.6 Bas% 0.3 % N 0.0-1.1 Neut# 4.70 K/uL N 1.8-7.0 Lymph # 2.44 K/uL N 1.0-4.0 Evans # 0.69 K/uL N 0.0-0.8 Eos # 0.09 K/uL N 0.0-0.5 Baso # 0.02 K/uL N 0.0-0.1 Laboratory test finding 04/20/2016 [facility] LDH 205 U/L N 87-241 [address] [place] [address] [phone] Afp Tumor Marker,Serum 1.5 ng/mL 0.0-8.3 34 Comprehensive Metabolic 04/20/2016 [facility] Glucose 87 mg/dL N 74-106 Panel [address] [place] [address] [phone] BUN 20 mg/dL High 7-18 Creatinine 1.0 [...] 67 U/L N 45-117 [facility] test [facility] <[facility]> finding [address] [place] [address] [phone] Comprehensive 02/05/2016 [facility] Glucose 61 mg/dL Low 74-106 Metabolic Panel [address] [place], [place] [address] [phone] BUN 19 mg/dL High 7-18 Creatinine 1.1 [...] U/L N 45-117 CBS W/Automated Diff 02/05/2016 [facility] White Blood 8.6 K/uL N 3.4-10.[address] [place] [address] [phone] Red Blood Count 5.23 M/uL N 4.20-5.80 [...] 33.0-73.0 Lymph % 23.3 % N 17.0-56.0 Evans % 7.3 % N 0.0-10.0 Eo% 1.0 % N 0.0-5.0 Bas% 0.1 % N 0.1-1.0 Neut# 5.85 K/uL N 1.8-7.0 Lymph # 2.00 K/uL N 1.8-7.0 Evans # 0.63 K/uL N 0.0-0.8 Eos # 0.09 K/uL N 0.0-0.5 Baso # 0.01 K/uL Low 0.1-0.2 Laboratory test finding 02/05/2016 [facility] LDH 213 U/L N 87-[address] [place] [address] [phone] BHCG Tumor MRKR <pending> Sedimentation Rate 5 [...] Negative Urine Protein Negative Negative Urine Specific [place] 1.015 1.010-1.030 Urine Urobilinogen 0.2 0.2-1.0 Urine pH 7.0 6.5-7.5 Laboratory test finding 06/17/2015 [facility] Ferritin 114 ng/mL 26-388 [address] [place] [address] [phone] Sedimentation Rate 7 mm/hr 0-15 Comprehensive Metabolic 06/17/2015 [facility] Glucose 99 mg/dL 74-106 Panel [address] [place] [address] [phone] BUN 18 mg/dL 7-18 Creatinine 1.0 mg/dL [...] Phosphatase 72 U/L 45-117 CBC W/Automated 06/17/2015 [facility] White Blood 10.4 K/uL 3.4-10.5 Diff 134 [facility] [place] [address] [phone] Red Blood Count 5.03 M/uL 4.20-5.80 Hemoglobin [...] % 33.0-73.0 Lymph % 23.6 % 17.0-56.0 Evans % 6.6 % 0.0-10.0 Eo% 0.5 % 0.0-5.0 Bas% 0.2 % 0.1-1.0 Neut# 7.16 K/uL High 1.8-7.0 Lymph # 2.44 K/uL 1.8-7.0 Evans # 0.68 K/uL 0.0-0.8 Eos # 0.05 K/uL 0.0-0.5 Baso # 0.02 K/uL Low 0.1-0.2 Laboratory test 06/17/2015 [facility] Slide Review . 40 finding [address] [place] [address] [phone] Laboratory test 06/17/2015 N2N/CCD Import Alanine 102 [...] Blood Count 10.4 3.4-10.5 Laboratory test 06/17/2015 [facility] Afp Tumor 1.4 ng/mL 0.0-8.3 [address] Marker,[place] [address] [phone] HCG,Beta Subunit,QN,(Serial) <1 mIU/mL 0-3 42 Iron-Tibc-%Sat 06/17/2015 [facility] Serum Iron 90 g/dL 65-[address] [place], [place] [address] [phone] Total Iron Binding Capacity 371 g/dL 250-450 [...] Count 16.0 High 3.4-10.5 Laboratory test 04/12/2015 [facility] [email or web address] Import Stool Occult Negative Negative finding Blood Laboratory test 04/04/2015 [employer] [facility] [email or web address] Import Aerobic Blood No Growth: finding Culture Final Report Anaerobic Blood Culture No Growth: Final Report Laboratory test 04/04/2015 [facility] [email or web address] Import Aerobic Blood No Growth: Final finding Culture Report Anaerobic Blood Culture No Growth: Final Report Lactic Acid Level 1.2 0.4-1.9 Laboratory test 04/04/2015 [employer] [email or web address] Import Alanine Aminotransferase 79 High 12-78 finding [...] Total Protein 8.7 High 6.4-8.2 CBC 11/07/2009 [facility] White Blood Count 8.7 K/uL 3.4-10.5 [address] [place] [address] [phone] Red Blood Count 4.85 M/uL 4.20-5.80 Hemoglobin 14.6 gm/dL 12.8-17.0 Hematocrit 43.4 % 38.0-48.0 Mean Cell Volume 89.5 fl 80.0-96.0 Mean Corpuscular HGB 30.1 pg 27.0-33.0 Mean Corpuscular HGB Conc 33.6 g/dL 31.7-36.0 Platelet Count 363 K/uL 150-400 Red Cell Distri Width %CV 12.8 % 11.6-15.8 Mean Platelet Volume 10.3 fL 6.6-10.6 Laboratory test finding 11/07/2009 [facility] Urine Screen See Note [address] [place] [address] [phone] 1 C62.11 2 [facility] Electrochemiluminescence Immunoassay [...] and 39 years old. Mikal, et.al. JCEM 2017,102;0933-6143. PMID: 24754195. 4 [facility] ECLIA methodology Performed at: - [facility] [address] [id number] Medical Records Specialist: Rita Natarajan MD, Phone: [phone] Note: Persistent reduction for 3 months [...] and 39 years old. Mikal, et.al. JCEM 2017,102;1844-6192. PMID: 76314860. 8 [employer] ECLIA methodology 9 Note: Persistent [...] and 39 years old. Travison, et.al. JCEM 2017,102;6692-0028. PMID: 43301204. 13 [facility] ECLIA methodology Performed at: [facility] [employer] [id number] Medical Records Specialist: Rita Natarajan MD, Phone: [phone] 14 Normal values apply only to males and to non females. These results are not interpretable for females. [facility] ECLIA methodology. Values obtained with different assay methods or kits cannot be used interchangeably. Results cannot be interpreted as absolute evidence of the presence or absence of malignant disease. Performed at: [facility] [employer] [id number] Medical Records Specialist: Rita Natarajan MD, Phone: [phone] 15 Adult male reference interval is based on a population of healthy nonobese males (BMI <30) between 19 and 39 years old. Travison, et.al. JCEM 2017,102;6740-2032. PMID: [id number]. 16 [facility] ECLIA methodology Performed at: [facility] [employer] [id number] Medical Records Specialist: Rita Natarajan MD, Phone: [phone] 17 SENT BY , "PROBLEM WITH IMPLANT" [...] called to: [] - 12/02/16 at 190712/02/16 1908: LYMPH % previously reported as: 17.6 L % Amended result called to: [] 12/02/16 at 190712/02/16 1908: MONO % previously reported as: 6.0 % Amended result called to: [] 12/02/16 at 190712/02/16 190: EO% previously reported as: 0.3 % Amended result called to: [] 12/02/16 at 190712/02/161907: BAS% previously reported as: 0.2 % Amended result called to: [] 12/02/16 at 8 23 C62.11 D72.829 24 Adult male reference interval is based on a population of lean males up to 40 years old. 25 Cortisol AM 6.2 - 19.4 Cortisol PM 2.3 - 11.9 Performed at: [facility] [employer] [id number] Medical Records Specialist: Rita Natarajan MD, Phone: [phone] 26 Effective September 21, 2016 the reference interval for Testosterone, Serum Males >18 years old will be changing to: Adult Males: 264 916 27 Adult male reference interval is based [...] disease. 31 [facility] ECLIA methodology Performed at: [facility] [employer] [id number] Medical Records Specialist: Rita Natarajan MD, Phone: [phone] Note: Persistent reduction for 3 months [...] or absence of malignant disease. Performed at: [facility] [employer] [id number] Medical Records Specialist: Rita Natarajan MD, Phone: [phone] Note: Persistent reduction for 3 months [...] disease. 38 [facility] ECLIA methodology Performed at: [facility] [employer] [id number] Medical Records Specialist: Rita Natarajan MD, Phone: [phone] Note: Persistent reduction for 3 months [...] ECLIA methodology Performed at: RN - [facility] [address] [id number] Medical Records Specialist: Rita Natarajan MD, Phone: [phone] Instrument flagged sample for slide review. No immature WBC's noted. RBC morphology essentially normal. 44 NO SPECIMEN RECVED Procedures Date Code Description Status 01/19/2018 17113 EKG Interpretation And Report Only Completed 01/19/2018 22187 Remove Foreign Body Scrotum Completed 01/19/2018 59485 Scrotal Exploration Completed 11/25/2016 26382 Insert Testicular Prosthesis Completed 02/14/2010 19263 Remove venous access, +subq port or pump, central or Completed peripheral 11/12/2009 99394 Insert tunneled central venous catheter with subcutaneous Completed pump 04/02/2004 47348 Clavicle Fracture-closed w/o man Completed Encounters Type Date Location Provider Dx Diagnosis Office Visit 02/02/2018 Oncology Office Bonita Mahoney 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 implanted testicular prosthesis, subs Office Visit 01/03/2018 11:00a Oncology Office Landry Mahoney2.11 Malignant Bonita, 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 N50.82 Scrotal pain Office Visit 09/06/2017 1:00p Oncology Office Landry Mahoney2.11 Malignant Bonita, 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 D72.829 Elevated white blood cell count, unspecified Office Visit 07/30/2017 8:00a Oncology Office [place], 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, DO [...] gain Office Visit 08/18/2016 10:15a Oncology Office [place], 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, 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 D72.829 Elevated white blood cell count, unspecified R63.5 Abnormal weight gain Office Visit 04/22/2016 1:00p Oncology Office [place], 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, 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 Office Visit 04/20/2016 9:00a Oncology Office [place], 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, 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 Office Visit 02/05/2016 8:15a Oncology Office [place], 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, 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 D72.829 Elevated white blood cell count, unspecified K62.5 Hemorrhage of anus and rectum Office Visit 08/30/2015 11:00a Oncology Office [place], 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, 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 Office Visit 06/24/2015 3:40p Oncology Office [place], 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, 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 Office Visit 05/13/2015 1:30p Oncology Office [place], 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, 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 D72.829 Elevated white blood cell count, unspecified Office Visit 04/26/2015 1:00p Oncology Office [place], 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, 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 D72.829 Elevated white blood cell count, unspecified K62.5 Hemorrhage of anus and rectum Office Visit 04/16/2010 9:30a Surgical Office ChristopheHarjit Kp, 186.9 Malignant Neoplasm Testis Other & Unspec Office Visit 02/12/2010 8:30a Surgical Office Harjit Saeed, 186.9 Malignant Neoplasm MD Testis Other & Unspec Office Visit 11/07/2009 9:00a Surgical Office ChristopheHarjit Patelmanoj, 186.9 Malignant Neoplasm Testis Other & Unspec Plan of Treatment Future Appointment(s):07/11/2018 2:00 pm - Bonita Mahoney, at Oncology [id number]/12/2018 - Paramjit Butler, PAN50.82 Scrotal painComments:For the short-term I recommended hydrocortisone cream 1% applied twice a day to the area of her irritation. Once irritation is resolved for 48 hours I suggest he uses triple antibiotic And as a friction barrier. It may help him if once a day he just gets his scrotum out of the underwear without the localized friction. Call for his review. Follow up on a when necessary basis.
--- NOTE | 2018-05-16 14:03 | ED ---
Complaint/Male - History of Current Complaint Chief Complaint: EDUrogenitalProblems Time Seen by Provider: 05/16/18 13:27 - Allergies/Home Medications Allergies/Adverse Reactions: Allergies Allergy/AdvReac Type Severity Reaction Status Date / Time No Known Allergies Allergy Verified 01/11/17 11:53 PMH/Surg Hx/FS Hx/Imm Hx Sensory History: Denies: Hx Legally Blind, Hx Deafness Opthamlomology History: Denies: Hx Legally Blind - Cancer History Cancer Type, Location and Year: Testicular CA stage 1--had surgery and chemo - Surgical History Surgery Procedure, Year, and Place: testicle removal 2010, 2014 R testicle prosthetis implanted, mediport placed & removed. tonsillectomy Infectious Disease History: No Infectious Disease History: Denies: Traveled Outside the [place] in Last 30 Days - Family History Known Family History: Positive: None, Unknown, Other - Cancer - Social History Alcohol Use: None Substance Use Type: Reports: None Smoking Status (MU): Former Smoker Type: Cigarettes Amount Used/How Often: 1-2 cigarettes daily Length of Time of Smoking/Using Tobacco: on & off for a few years Physical Exam Vital Signs On Initial Exam: Initial Vitals Temp Pulse Resp BP Pulse Ox 98.6 F 74 18 152/98 99 05/16/18 10:39 05/16/18 10:39 05/16/18 10:39 05/16/18 10:39 05/16/18 10:39 Diagnostics - Vital Signs Vital Signs Temp Pulse Resp BP Pulse Ox 05/16/18 12:20 99.0 F 82 18 163/108 98 05/16/18 10:39 98.6 F 74 18 152/98 99 - Laboratory Lab Statement: Any lab studies that have been ordered have been reviewed, and results considered in the medical decision making process.
[2018-05-16 14:30] VITALS: BP 155/84
[2018-05-16 14:34] LABS: Urine Appearance Clear; Urine Bilirubin Negative (Negative); Urine Blood Negative (Negative); Urine Color Yellow; Urine Glucose Negative (Negative); Urine Ketones Negative (Negative); Urine Nitrite Negative (Negative); Urine Protein Negative (Negative); Urine Specific Gravity 1.023 (1.010-1.030); Urine Urobilinogen Negative (Negative)
--- NOTE | 2018-05-16 17:08 | ED ---
GI/ HPI - HPI Summary HPI Summary: Patient is a 28-year-old male who presents emergency department for left testicular pain that started yesterday. Patient describes pain as a "pinching" pain. Pain is improved with elevation. Patient denies fever, chills, abdominal pain, vomiting, rash, penile discharge, concern for STDs. Patient does have a history of right-sided testicular cancer with orchiectomy. Pt. has had implant in right that was removed secondary to complication. Symptoms are moderate in severity. Otherwise denies medical hx. - History of Current Complaint Chief Complaint: EDUrogenitalProblems Time Seen by Provider: 05/16/18 13:27 Stated Complaint: "I HAVE GROIN PAIN" PER PT Hx Obtained From: Patient Pain Intensity: 0 - Allergy/Home Medications Allergies/Adverse Reactions: Allergies Allergy/AdvReac Type Severity Reaction Status Date / Time No Known Allergies Allergy Verified 01/11/17 11:53 PMH/Surg Hx/FS Hx/Imm Hx Previously Healthy: Yes Sensory History: Denies: Hx Legally Blind, Hx Deafness Opthamlomology History: Denies: Hx Legally Blind - Cancer History Cancer Type, Location and Year: Testicular CA stage 1--had surgery and chemo - Surgical History Surgery Procedure, Year, and Place: testicle removal 2010, 2014 R testicle prosthetis implanted, mediport placed & removed. tonsillectomy Infectious Disease History: No Infectious Disease History: Denies: Traveled Outside the [place] in Last 30 Days - Family History Known Family History: Positive: None, Unknown, Other - Cancer - Social History Occupation: Employed Full-time Lives: With Family Alcohol Use: None Substance Use Type: Reports: None Smoking Status (MU): Former Smoker Type: Cigarettes Amount Used/How Often: 1-2 cigarettes daily Length of Time of Smoking/Using Tobacco: on & off for a few years Review of Systems Constitutional: Negative Negative: Fever, Chills Gastrointestinal: Negative Negative: Abdominal Pain, Vomiting, Nausea Positive: other - left side testicular pain. no discharge or lesions Skin: Negative Negative: Rash All Other Systems Reviewed And Are Negative: Yes Physical Exam Triage Information Reviewed: Yes Vital Signs On Initial Exam: Initial Vitals Temp Pulse Resp BP Pulse Ox 98.6 F 74 18 152/98 99 05/16/18 10:39 05/16/18 10:39 05/16/18 10:39 05/16/18 10:39 05/16/18 10:39 Vital Signs Reviewed: Yes Appearance: Positive: Well-Appearing - Pt. sitting on bed in NAD. Skin: Positive: Warm, Dry Head/Face: Positive: Normal Head/Face Inspection Eyes: Positive: Normal, EOMI Neck: Positive: Supple Abdomen Description: Positive: Nontender, Soft Male Genital Exam: Positive: Other - Exam performed with tech in [id number]. Right orchiectomy. No scrotal edema or erythema. Circumcised penis without edema , lesions, or discharge. Neurological: Positive: Normal, CN Intact II-III Psychiatric: Positive: Affect/Mood Appropriate Diagnostics - Vital Signs Vital Signs Temp Pulse Resp BP Pulse Ox 05/16/18 14:28 97.8 F 85 14 155/84 99 05/16/18 12:20 99.0 F 82 18 163/108 98 05/16/18 10:39 98.6 F 74 18 152/98 99 - Laboratory Lab Results: Lab Results 05/16/18 Range/Units 14:15 Urine Color Yellow Urine Appearance Clear Urine pH 5.0 (5-9) Ur Specific [place] 1.023 (1.010-1.030) Urine Protein Negative (Negative) Urine Ketones Negative (Negative) Urine Blood Negative (Negative) Urine Nitrate Negative (Negative) Urine Bilirubin Negative (Negative) Urine Urobilinogen Negative (Negative) Ur Leukocyte Esterase Negative (Negative) Urine Glucose Negative (Negative) Lab Statement: Any lab studies that have been ordered have been reviewed, and results considered in the medical decision making process. GIGU Course/Dx - Course Course Of Treatment: Patient presenting for mild left-sided testicular pain. He is afebrile. Testicular exam unremarkable. Testicular ultrasound: Testicle U/S per radiology: IMPRESSION: 1. NO EVIDENCE FOR LEFT TESTICULAR TORSION OR EPIDIDYMITIS. 2. SMALL LEFT EPIDIDYMAL HEAD CYST, UNCHANGED. 3. SMALL LEFT HYDROCELE. 4. STATUS POST RIGHT ORCHIECTOMY AND REMOVAL OF THE RIGHT TESTICULAR IMPLANT. Suspect hydrocele is cause of pt.'s discomfort. Urine for gonorrhea and chlamydia in lab. Advised patient close follow-up with his urologist. Advised to elevate scrotum and apply cool compresses. To wear supportive underwear. To return to the ER symptoms change or worsen. Patient understands and agrees with plan. - Diagnoses Differential Diagnoses - Male: STD, Testicular Torsion, Urethritis Provider Diagnoses: Hydrocele, Cyst, epididymis Discharge - Sign-Out/Discharge Documenting (check all that apply): Patient Departure Patient Received Moderate/Deep Sedation with Procedure: No - Discharge Plan Condition: Good Disposition: HOME Patient Education Materials: Hydrocele (ED), Testicle Pain (ED) Referrals: Jeovanny Barlow [Primary Care Provider] - Additional Instructions: Schedule a follow up appointment with your urologist if pain persist Ice and elevate scrotum Ibuprofen for pain as directed Return to ER if symptoms change or worsen - Billing Disposition and Condition Condition: GOOD Disposition: Home
[2018-05-17 13:21] LABS: Neisseria gonorrhoeae (GC) RNA Negative (Negative)
== END 2018-05-16 14:28 | disposition home or self-care (01) ==
LOC: ED 10:26
DX: N43.3 Hydrocele, unspecified (principal); N50.3 Cyst of epididymis; N50.812 Left testicular pain
CPT/HCPCS: 76870; 81003; 87491; 87591; 99281

== ENCOUNTER 2019-05-24 11:12 | Emergency (ER) | payer OTHER ==
[2019-05-24 11:22] VITALS: BP 149/93
--- NOTE | 2019-05-24 11:36 | UC ---
Throat Pain/Nasal Lucas HPI - HPI Summary HPI Summary: 29-year-old male comes in with a chief complaint of upper respiratory tract infection symptoms. Symptoms started about a week ago. He had bodyaches fevers chills nasal discharge sore throat. When his throat got dry cough denies any shortness of breath no recent travel. Overall his symptoms have improved. Patient wishes to go back to work and he reports that his employer requires a note to go back to work. - History of Current Complaint Chief Complaint: UCRespiratory Stated Complaint: UPPER RESP CONCERN Time Seen by Provider: 05/24/19 11:26 Pain Intensity: 5 - Allergies/Home Medications Allergies/Adverse Reactions: Allergies Allergy/AdvReac Type Severity Reaction Status Date / Time No Known Allergies Allergy Verified 05/24/19 11:22 Home Medications: Home Medications NK [No Home Medications Reported] 07/26/18 [History Confirmed 05/24/19] PMH/Surg Hx/FS Hx/Imm Hx Previously Healthy: Yes - Surgical History Surgical History: Yes Surgery Procedure, Year, and Place: testicle removal 2010, 2014 R testicle prosthetis implanted, mediport placed & removed. tonsillectomy. GASTROSCOPY [facility]. [facility]. - Family History Known Family History: Positive: None, Unknown, Other - Cancer - Social History Alcohol Use: None Substance Use Type: None Smoking Status (MU): Former Smoker Type: Cigarettes Amount Used/How Often: 1-2 cigarettes daily Length of Time of Smoking/Using Tobacco: on & off for a few years When Did the Patient Quit Smoking/Using Tobacco: BEGING OF THIS MONTH Household Exposure Type: Cigarettes - Immunization History Most Recent Influenza Vaccination: no Vaccination Up to Date: Yes Review of Systems All Other Systems Reviewed And Are Negative: Yes Constitutional: Positive: Fever, Other - SEE HPI Skin: Positive: Negative Eyes: Positive: Negative ENT: Positive: Sore Throat, Nasal Discharge Respiratory: Positive: Cough Cardiovascular: Positive: Negative Gastrointestinal: Positive: Negative Motor: Positive: Negative Neurovascular: Positive: Negative Musculoskeletal: Positive: Myalgia Neurological/Mental Status: Positive: Negative Psychological: Positive: Negative Is Patient Immunocompromised?: No Physical Exam Triage Information Reviewed: Yes Appearance: Well-Appearing, No Pain Distress, Well-Nourished Vital Signs: Initial Vital Signs Temp 98.3 F 05/24/19 11:18 Pulse 69 05/24/19 11:18 Resp 16 05/24/19 11:18 BP 149/93 05/24/19 11:18 Pulse Ox 99 05/24/19 11:18 Vital Signs Reviewed: Yes Eye Exam: Normal Eyes: Positive: Conjunctiva Clear ENT: Positive: Pharynx normal, TMs normal Neck: Positive: Supple Respiratory: Positive: Lungs clear, Normal breath sounds, No respiratory distress Cardiovascular: Positive: RRR Musculoskeletal: Positive: Strength Intact, ROM Intact Neurological: Positive: Alert, Muscle Tone Normal Psychological: Positive: Age Appropriate Behavior Skin Exam: Normal Throat Pain/Nasal Course/Dx - Course Course Of Treatment: Patient does have a dry cough and did have a fever however he does not have any shortness of breath or recent travel. Also the cough patient reports is due to a dry throat rhinorrhea than as a result of chest congestion. At this time patient does not appear to be at risk for covid 19. Patient will continue to treat symptomatically and get reevaluated if worse any questions or concerns. - Differential Dx/Diagnosis Provider Diagnosis: Upper respiratory infection Discharge ED - Sign-Out/Discharge Documenting (check all that apply): Patient Departure All imaging exams completed and their final reports reviewed: No Studies - Discharge Plan Condition: Stable Disposition: HOME Patient Education Materials: Upper Respiratory Infection (ED) Forms: *Work Release Referrals: Nguyen Lerma MD [Primary Care Provider] - Additional Instructions: FOLLOW UP WITH YOUR DOCTOR IF NOT COMPLETELY IMPROVED. GET REEVALUATED IF NOT IMPROVING OR WORSE OR ANY QUESTIONS OR CONCERNS. - Billing Disposition and Condition Condition: STABLE Disposition: Home
== END 2019-05-24 11:44 | disposition home or self-care (01) ==
LOC: UCCORT 11:12
DX: J06.9 Acute upper respiratory infection, unspecified (principal); Z87.891 Personal history of nicotine dependence
CPT/HCPCS: 99211; G0463